=== PATIENT | female | born 1975 | race Hispanic/Latino ===

== ENCOUNTER 2019-11-23 01:07 | Inpatient (IN) | payer SELFPAY ==
--- OUTSIDE RECORDS SUMMARY | 2019-11-23 01:10 | XMS REPORT ---
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 Active Daysi Proteinuria 11/04 11/04 Artis GARCIA (res) BMI 45.0-49.9 Active Daysi Body Mass Index 11/03 11/03 Artis GARCIA 45.0-49.9, (res) adult MORBID OBESITY Active Daysi Morbid obesity 11/03 11/03 Artis GARCIA (res) Hyperlipidemia 272.4 Active Allison Other and 01/31 02/07 Darya GARCIA unspecified hyperlipidemia Anemia 285.9 Active Allison Anemia, 01/17 01/17 Darya GARCIA unspecified DIABETES 250.00 Active Allison Diabetes MELLITUS, TYPE 01/17 01/17 Darya GARCIA mellitus II without mention of complication, type II or unspecified type, not stated as uncontrolled HYPERTENSION 401.9 Active Allison Unspecified 01/17 01/17 Darya GARCIA essential hypertension Abscess, back s/p ICD-682.2 Inactive Lesli Brooke I&D D.O. Abscess, back 682.2 Resolved Lesli Brooke Cellulitis and s/p I&D D.O. abscess of trunk Medication List Medication Instructions Start Stop Generic NDC Status Provider Patient Date Date Name Instruction ASPIRIN 81 MG 1 by ASPIRIN [id number] Active Daysi Active ORAL TABLET mouth Artis GARCIA DELAYED every (res) RELEASE day HUMULIN N 939 80 8147/11/06 INSULIN NPH 22845822444 Active Daysi Active UNIT/ML units HUMAN Artis GARCIA SUBCUTANEOUS SC BID (ISOPHANE) (res) SUSPENSION METFORMIN HCL 1 by METFORMIN HCL 26806297833 Active Daysi Active 1000 MG ORAL mouth Artis GARCIA TABLET twice a (res) day SIMVASTATIN 40 1 by SIMVASTATIN 88774108843 Active Daysi Active MG ORAL TABLET mouth Artis GARCIA every (res) night LISINOPRIL 10 1 by LISINOPRIL 31741218143 Active Daysi Active MG ORAL TABLET mouth Artis GARCIA every (res) day AMOXICILLIN 1 tablet AMOXICILLIN 854450 AMOXICILLIN Inactive 500 MG ORAL by mouth 500 MG ORAL CAPSULE every 8 CAPSULE hours until gone TYLENOL WITH Take 1 TYLENOL WITH ACETAMINOPHE Inactive CODEINE #3 tab CODEINE #3 N-CODEINE TABLET every TABLET TABS 4-6 hours prn pain LANTUS 60 units LANTUS INSULIN Inactive SOLOSTAR 100 once SOLOSTAR 100 GLARGINE UNIT/ML daily UNIT/ML SUBCUTANEOUS SUBCUTANEOUS SOLUTION SOLUTION PEN-INJECTOR PEN-INJECTOR FERROUS 1 by FERROUS [id number] FERROUS Inactive SULFATE 325 mouth 2 SULFATE 325 SULFATE (65 FE) MG times a (65 FE) MG ORAL TABLET day ORAL TABLET DELAYED DELAYED RELEASE RELEASE NOVOLIN 70/30 30 units NOVOLIN 70/30 INSULIN NPH Inactive RELION (70-30) twice RELION ISOPHANE & 100 UNIT/ML daily (70-30) 100 REGULAR SUBCUTANEOUS UNIT/ML SUSPENSION SUBCUTANEOUS SUSPENSION AMOXICILLIN 1 AMOXICILLIN 11047134482 No Daysi Active 500 MG ORAL tablet Longer Artis GARCIA CAPSULE by Active (res) mouth every 8 hours until gone TYLENOL WITH Take 1 ACETAMINOPHE 13021158401 No Daysi Active CODEINE #3 tab N-CODEINE Anuj Wisdom MD TABLET every TABS Active (res) 4-6 hours prn pain LANTUS 60 INSULIN 56403198938 No Daysi Active SOLOSTAR 100 units GLARGINE Anuj Wisdom MD UNIT/ML once Active (res) SUBCUTANEOUS daily SOLUTION PEN-INJECTOR FERROUS 1 by FERROUS 75780033128 No Daysi Active SULFATE 325 mouth 2 SULFATE Longer Artis GARCIA (65 FE) MG times a Active (res) ORAL TABLET day DELAYED RELEASE NOVOLIN 30 INSULIN NPH 22477625697 No Lesli M Active RELION units ISOPHANE & Longer Ehdaie () 100 twice REGULAR Active D.O. UNIT/ML daily SUBCUTANEOUS SUSPENSION Vital Signs Date Name Value Unit Range Description blood pressure, diastolic 100 mm[Hg] BP diamond blood pressure, systolic 154 mm[Hg] BP sys height E&M 61 [in_us] Bdy height pulse rate E&M 80 /min Heart rate respiratory rate E&M 16 /min Resp rate temperature E&M 98.9 [degF] Body temperature weight E&M 246.60 [lb_av] Weight Measured blood pressure, diastolic 78 mm[Hg] BP diamond blood pressure, systolic 125 mm[Hg] BP sys pulse rate E&M 97 /min Heart rate blood pressure, diastolic 92 mm[Hg] BP diamond blood pressure, systolic 156 mm[Hg] BP sys pulse rate E&M 88 /min Heart rate blood pressure, diastolic 88 mm[Hg] BP diamond blood pressure, systolic 141 mm[Hg] BP sys pulse rate E&M 90 /min Heart rate blood pressure, diastolic 96 mm[Hg] BP diamond blood pressure, systolic 149 mm[Hg] BP sys height E&M 61 [in_us] Bdy height pulse rate E&M 86 /min Heart rate respiratory rate E&M 20 /min Resp rate temperature E&M 98.5 [degF] Body temperature weight E&M 234.40 [lb_av] Weight Measured Diagnostic Results Date Name Value Unit Range Description Lab Report: Comp. Metabolic Panel (14), Lipid Panel, Albumin/Creatinine ... - Chemistry sodium, serum 137 mmol/L 323-940 3681/11/06 very low density lipoproteins 56 mg/dL 5-40 carbon dioxide, venous blood 23 mmol/L 20-29 chloride, serum 98 mmol/L 96-106 triglyceride, serum, fasting 280 mg/dL 0-149 calcium, serum 8.9 mg/dL 8.7-10.2 urea nitrogen, blood 13 mg/dL 6-24 microalbumin/creatinine ratio, urine 1531.7 MG/G CREAT ug/mg 0.0 -30.0 alanine aminotransferase (SGPT), serum 38 U/L 0-32 Office Visit: Adult Followup on diabetes 6 Dr Wisdom - Chemistry blood glucose, fasting 267 mg/dL Lab Report: Comp. Metabolic Panel (14), Lipid Panel, Albumin/Creatinine ... - Chemistry protein, total, serum 7.7 g/dL 6.0-8.5 alkaline phosphatase, serum 123 U/L 39-117 LDL cholesterol, serum 104 mg/dL 0-99 urea nitrogen/creatinine ratio, serum 19 9-23 Office Visit: Adult Followup Dr Brooke Rm 5 - Chemistry hemoglobin A1C, blood, as % of total hemoglobin 11.5 % Lab Report: Comp. Metabolic Panel (14), Lipid Panel, Albumin/Creatinine ... - Chemistry HDL cholesterol, serum 42 mg/dL >39 Lab Report: Comp. Metabolic Panel (14), Lipid Panel, Albumin/Creatinine ... - Genetics/fertility eGFR if 123 mL/min/1.73m2 >59 Lab Report: Comp. Metabolic Panel (14), Lipid Panel, Albumin/Creatinine ... - Chemistry globulin, serum 3.8 1.5-4.5 albumin/globulin ratio, serum 1.0 1.2-2.2 creatinine, serum 0.70 mg/dL 0.57-1.00 Estimated Glomerular Filtration Rate 106 mL/min/1.73m2 >59 (calc) cholesterol, serum 202 mg/dL 199-746 3425/11/06 creatinine, random, urine 77.3 mg/dL Not Estab. bilirubin, serum, total 0.4 mg/dL 0.0-1.2 Lab Report: Comp. Metabolic Panel (14), Lipid Panel, Albumin/Creatinine ... - Urinalysis microalbumin/total urine volume 1184.0 mg/L Not Estab. Lab Report: Comp. Metabolic Panel (14), Lipid Panel, Albumin/Creatinine ... - Chemistry blood glucose, random 293 mg/dL 65-99 aspartate aminotransferase (SGOT), serum 30 U/L 0-40 potassium, serum 4.5 mmol/L 3.5-5.2 albumin, serum 3.9 g/dL 3.5-5.5 Encounters Date Encounter Provider Code Facility Est Patient Exp Daysi Wisdom MD CPT-16578 [facility] 11:31:09 ENERGY CONSERVATION ENGINEER Problem - 38187 (res) Practice Est Patient Detailed Daysi Wisdom MD CPT-61119 [facility] 09:09:18 ENERGY CONSERVATION ENGINEER - 36501 (res) Practice Est Patient Detailed Lesli Brooke D.O. CPT-92240 [facility] 13:49:09 ENERGY CONSERVATION ENGINEER - 69079 Practice Est Patient Exp Allison Lackey MD CPT-93974 [facility] 14:09:01 CDT Problem - 74778 Practice New Patient Exp Allison Lackey MD CPT-02776 [facility] 16:06:23 CDT Problem - 64884 Practice Procedures Code Procedure Name Date Entry Date Standard Description CPT-00442 HEMOGLOBIN A1C - In House 09:09:19 ENERGY CONSERVATION ENGINEER CPT-05711 Glucose Stick 09:09:18 ENERGY CONSERVATION ENGINEER CPT-05530 HEMOGLOBIN A1C - In House 13:49:08 ENERGY CONSERVATION ENGINEER
[2019-11-23] MEDS ORDERED: NA CHLORIDE 0.9% 2,000 ML ONE (02:02)
[2019-11-23] MEDS ORDERED: PIPER/TAZO/NS 3.375gm 3.375 GM/100 ML BAG ONE (02:02)
[2019-11-23 02:20] LABS: Absolute Lymphocytes (CBC) 4.3 K/uL (0.7-4.9); Basophils % 1.2 % (0-1.3); Hematocrit 44.6 % (36.0-45.0); Lymphocytes % 34.5 % (15.3-44.8); MPV 7.3 fL (7.6-11.3); RBC Red Blood Cell Count 5.13 M/uL (3.86-4.86)
[2019-11-23] MEDS ORDERED: INSULIN -REGULAR HUMAN 50 UNIT/0.5 ML ML ONE (02:28)
[2019-11-23] MEDS ORDERED: VANCOMYCIN 1 GM/VIAL ONE (02:29)
[2019-11-23] MEDS ORDERED: NA CHLORIDE 0.9% 250 ML ONE (02:29)
[2019-11-23 02:31] LABS: Potassium 3.8 mmol/L (3.5-5.1)
[2019-11-23 03:10] LABS: Albumin 3.3 g/dL (3.4-5.0); Bilirubin Direct 0.1 mg/dL (0-0.2); Bilirubin Total 0.4 mg/dL (0.2-1.0); Protein, Total 7.5 g/dL (6.4-8.2)
--- NOTE | 2019-11-23 03:29 | EDPHYS ---
Physician Documentation [facility] Name: Hollie Fabian Age: 44 yrs Sex: Female : 1975 Arrival Date: 11/23/2019 Time: 01:09 Bed 7 Private MD: ED Physician Armen Bro HPI: 11/23 02:08 This 44 yrs old Female presents to ER via Ambulatory with complaints of snw Abscess. 02:08 The patient presents with an abscess of the right lower quadrant, The patient presents snw with cellulitis of the surrounding abscess. Description: well demarcated, draining. Onset: The symptoms/episode began/occurred gradually, 2 week(s) ago, and became persistent. Possible cause(s): unknown. Associated signs and symptoms: Pertinent positives: discharge, erythema, bruised. Severity of symptoms: At their worst the symptoms were moderate, severe. The patient has not experienced similar symptoms in the past. The patient has not recently seen a physician, and does not have an established primary care provider. 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 - Coronavirus screen:: The patient has NOT traveled to [place], [place], or [place] in the past 14 days. - Social history:: Smoking status: Patient denies any tobacco usage or history of. Patient uses alcohol, occasionally. Patient/guardian denies using street drugs. - Ebola Screening: : Patient negative for fever greater than or equal to 101.5 degrees Fahrenheit, and additional compatible Ebola Virus Disease symptoms Patient denies exposure to infectious person Patient denies travel to an Ebola-affected area in the 21 days before illness onset. ROS: 02:06 Constitutional: Negative for fever, chills, and weight loss, Eyes: Negative for injury, snw pain, redness, and discharge, ENT: Negative for injury, pain, and discharge, Neck: Negative for injury, pain, and swelling, Cardiovascular: Negative for chest pain, palpitations, and edema, Respiratory: Negative for shortness of breath, cough, wheezing, and pleuritic chest pain, Back: Negative for injury and pain, : Negative for injury, bleeding, discharge, and swelling, MS/Extremity: Negative for injury and deformity, Skin: Negative for injury, rash, and discoloration, Neuro: Negative for headache, weakness, numbness, tingling, and seizure, Psych: Negative for depression, anxiety, suicide ideation, homicidal ideation, and hallucinations. 02:06 Constitutional: Negative for chills, fever, malaise. 02:06 Abdomen/GI: Positive for painful abscess to lower right abdomen. Exam: 02:04 Constitutional: This is a well developed, well nourished patient who is awake, alert, snw and in no acute distress. Head/Face: Normocephalic, atraumatic. Eyes: Pupils equal round and reactive to light, extra-ocular motions intact. Lids and lashes normal. Conjunctiva and sclera are non-icteric and not injected. Cornea within normal limits. Periorbital areas with no swelling, redness, or edema. ENT: Nares patent. No nasal discharge, no septal abnormalities noted. Tympanic membranes are normal and external auditory canals are clear. Oropharynx with no redness, swelling, or masses, exudates, or evidence of obstruction, uvula midline. Mucous membranes moist. Neck: Trachea midline, no thyromegaly or masses palpated, and no cervical lymphadenopathy. Supple, full range of motion without nuchal rigidity, or vertebral point tenderness. No Meningismus. Chest/axilla: Normal chest wall appearance and motion. Nontender with no deformity. No lesions are appreciated. Cardiovascular: Regular rate and rhythm with a normal S1 and S2. No gallops, murmurs, or rubs. Normal PMI, no JVD. No pulse deficits. Respiratory: Lungs have equal breath sounds bilaterally, clear to auscultation and percussion. No rales, rhonchi or wheezes noted. No increased work of breathing, no retractions or nasal flaring. Abdomen/GI: Soft, non-tender, with normal bowel sounds. No distension or tympany. No guarding or rebound. No evidence of tenderness throughout. Back: No spinal tenderness. No costovertebral tenderness. Full range of motion. MS/ Extremity: Pulses equal, no cyanosis. Neurovascular intact. Full, normal range of motion. Neuro: Awake and alert, GCS 15, oriented to person, place, time, and situation. Cranial nerves II-XII grossly intact. Motor strength 5/5 in all extremities. Sensory grossly intact. Cerebellar exam normal. Normal gait. Psych: Awake, alert, with orientation to person, place and time. Behavior, mood, and affect are within normal limits. 02:04 Skin: Appearance: normal except for affected area, abscess, that is moderate sized, with surrounding cellulitis, that is mild, that is moderate, with necrotic coloration of skin flap over large cavity, malodorous, cellulitis, that is mild, well demarcated, on the mid and right lower panus, right groin with beefy red rash c/w fungal infection. Vital Signs: 01:20 BP 165 / 89; Pulse 96; Resp 20; Temp 97.9(O); Pulse Ox 98% on R/A; Weight 104.33 kg fc (R); Height 5 ft. 2 in. (157.48 cm) (R); Pain 8/10; 02:00 BP 128 / 82; Pulse 95; Resp 17; Pulse Ox 96% on R/A; rv 03:00 BP 116 / 72; Pulse 100; Resp 18; Pulse Ox 97% on R/A; rv 04:27 BP 110 / 63; Pulse 86; Resp 17; Pulse Ox 97% on R/A; rv 05:33 BP 130 / 67; Pulse 86; Resp 16; Pulse Ox 98% on R/A; rv 01:20 Body Mass Index 42.07 (104.33 kg, 157.48 cm) fc MDM: 01:33 Patient medically screened. snw 03:24 Data reviewed: vital signs, nurses notes. Data interpreted: Pulse oximetry: on room air snw is 98 %. Interpretation: normal. Counseling: I had a detailed discussion with the patient and/or guardian regarding: the historical points, exam findings, and any diagnostic results supporting the discharge/admit diagnosis, the presence of at least one elevated blood pressure reading (>120/80) during this emergency department visit, lab results, radiology results, the need for further work-up and treatment in the hospital. Physician consultation: Magali Goetz MD was called at 03:25, was contacted at 03:25, regarding admission, to the medical/surgical unit. and will see patient shortly. 11/23 01:47 Order name: Procalcitonin; Complete Time: 17:38 [facility] 11/23 01:47 Order name: Urine Microscopic Only; Complete Time: 17:38 11/23 01:47 Order name: Test, Serum; Complete Time: 17:38 11/23 01:47 Order name: Urine Culture [facility] 11/23 02:08 Order name: Basic Metabolic Panel; Complete Time: 03:14 EDNM 11/23 02:08 Order name: Creatine Phosphokinase; Complete Time: 03:14 EDNM 11/23 01:59 Order name: CT Stone Protocol [facility] 11/23 02:08 Order name: Lactate; Complete Time: 02:34 EDNM 11/23 02:08 Order name: CBC with Automated Diff; Complete Time: 03:21 EDMS 11/23 02:08 Order name: Sedimentation Rate, Westergren; Complete Time: 03:21 EDNM 11/23 02:08 Order name: Blood Culture [facility] 11/23 02:08 Order name: Blood Culture [facility] 11/23 02:09 Order name: Type and Screen; Complete Time: 03:29 EDMS 11/23 02:09 Order name: Glucose, Ancillary Testing; Complete Time: 02:11 EDNM 11/23 02:18 Order name: Chest Single View; Complete Time: 17:38 ED11/23 02:34 Order name: Liver (Hepatic) Function; Complete Time: 03:14 EDNM 11/23 03:42 Order name: Urine Dipstick--Ancillary (enter results); Complete Time: 17:38 [facility] 11/23 03:42 Order name: Urine --Ancillary (enter results); Complete Time: 17:38 de11/23 03:51 Order name: Glucose, Ancillary Testing; Complete Time: 17:38 EDNM 11/23 01:47 Order name: Accucheck; Complete Time: 02:13 w 11/23 01:47 Order name: Cardiac monitoring; Complete Time: 02:13 [facility] 11/23 01:47 Order name: EKG - Nurse/Tech; Complete Time: 03:25 w 11/23 01:47 Order name: IV Saline Lock - Large Bore; Complete Time: 02:12 11/23 01:47 Order name: Labs collected and sent; Complete Time: 02:11 11/23 01:47 Order name: O2 Per Protocol; Complete Time: 02:12 11/23 01:47 Order name: O2 Sat Monitoring; Complete Time: 02:12 11/23 01:47 Order name: Urine Dipstick-Ancillary (obtain specimen); Complete Time: 03:25 snw 11/23 03:29 Order name: FSBS; Complete Time: 03:46 snw Administered Medications: 02:13 Drug: NS 0.9% (30 ml/kg) 30 ml/kg Route: IV; Rate: bolus; Site: right antecubital; rv 05:33 Follow up: IV Status: Completed infusion; IV Intake: 2000ml rv 02:16 Drug: Zosyn 3.375 grams Route: IVPB; Infused Over: 60 mins; Site: right antecubital; vc 03:56 Follow up: IV Status: Completed infusion rv 02:30 Drug: Insulin Regular Human 5 units {Co-Signature: vc (Vira Delgado RN).} Route: rv IVP; Site: right antecubital; 03:55 Follow up: Response: Blood sugar is lowered rv 03:47 Drug: vancoMYCIN 1 grams Route: IVPB; Infused Over: 2 hrs; Site: right antecubital; vc 05:32 Follow up: IV Status: Completed infusion rv Disposition: 06:17 Co-signature as Attending Physician, Armen Bro MD. rn Disposition: 11/23/19 03:28 Hospitalization ordered by Magali Goetz for Observation. Preliminary diagnosis are Abscess of panus, Cellulitis, unspecified, Diabetes mellitus due to underlying condition with hyperglycemia, Tinea corporis. - Bed requested for Telemetry/MedSurg (observation). - Status is Observation. vc - Condition is Stable. - Problem is new. - Symptoms are unchanged. UTI on Admission? No Signatures: Dispatcher [employer] EDMS Yumiko Conn FNP-C MANUFACTURER REPRESENTATIVE-Csnw Carli Robles RN RN fc Nieto, Roman, MD MD rn Garcia, Cindy, RN RN cg Vicente, Ronaldo, RN RN rv Calcote, Vanessa, RN RN vc Vanessa Calcote RN vc Corrections: (The following items were deleted from the chart) 02:11 02:04 Skin: Appearance: normal except for affected area, abscess, that is moderate snw sized, with surrounding cellulitis, that is mild, that is moderate, with necrotic coloration of skin flap over large cavity, malodorous, cellulitis, that is mild, well demarcated, on the mid and right lower panus, snw 02:22 02:22 Procalcitonin+C.LAB.BRZ ordered. EDMS EDMS 02:23 02:22 UA MICROSCOPIC+U.LAB.BRZ ordered. EDMS EDMS 02:23 02:22 TEST, SERUM+SC.LAB.BRZ ordered. EDMS EDMS 02:23 02:22 Urine Culture+BA.LAB.BRZ ordered. EDNM EDMS 02:23 02:23 Stone Protocol+CT.RAD.BRZ ordered. EDNM EDMS 02:28 02:21 WESTERGREN SEDRATE+H.LAB.BRZ ordered. EDNM EDMS 02:28 02:21 CBC+H.LAB.BRZ ordered. EDNM EDMS 02:29 02:21 TYPE AND SCREEN+BB.LAB.BRZ ordered. EDNM EDMS 02:29 02:21 BLOOD CULTURE*+BA.LAB.BRZ ordered. EDNM EDMS 02:33 02:21 BASIC METABOLIC PANEL+C.LAB.BRZ ordered. EDNM EDMS 02:33 02:21 CREATINE PHOSPHOKINASE+C.LAB.BRZ ordered. EDNM EDMS 02:33 02:21 HEPATIC FUNCTION+C.LAB.BRZ ordered. EDNM EDMS 02:34 02:21 LACTATE+C.LAB.BRZ ordered. EDNM EDMS 02:52 02:22 Chest Single View+RAD.RAD.BRZ ordered. EDNM EDMS 03:29 03:28 Hospitalization Ordered by Magali Goetz MD for Observation. Preliminary diagnosis snw is Abscess of panus; Cellulitis, unspecified; Diabetes mellitus due to underlying condition with hyperglycemia. Bed requested for Telemetry/MedSurg (observation). Status is Observation. Condition is Stable. Problem is new. Symptoms are unchanged. UTI on Admission? No. snw 04:50 03:29 11/23/2019 03:28 Hospitalization Ordered by Magali Goetz MD for Observation. cg Preliminary diagnosis is Abscess of panus; Cellulitis, unspecified; Diabetes mellitus due to underlying condition with hyperglycemia; Tinea corporis. Bed requested for Telemetry/MedSurg (observation). Status is Observation. Condition is Stable. Problem is new. Symptoms are unchanged. UTI on Admission? No. snw 05:43 04:50 11/23/2019 03:28 Hospitalization Ordered by Magali Goetz MD for Observation. vc Preliminary diagnosis is Abscess of panus; Cellulitis, unspecified; Diabetes mellitus due to underlying condition with hyperglycemia; Tinea corporis. Bed requested for Telemetry/MedSurg (observation). Status is Observation. Condition is Stable. Problem is new. Symptoms are unchanged. UTI on Admission? No. cg
--- NOTE | 2019-11-23 03:29 | ER ---
Nurse's Notes [facility] Name: Hollie Fabian Age: 44 yrs Sex: Female : 1975 Arrival Date: 11/23/2019 Time: 01:09 Bed 7 Private MD: Diagnosis: Abscess of panus;Cellulitis, unspecified;Diabetes mellitus due to underlying condition with hyperglycemia;Tinea corporis Presentation: 11/23 01:20 Presenting complaint: Patient states: that over 1 week ago she noticed an abscess to right lower abd. Went to have it looked at over at [place] but they could not help her there. Transition of care: patient was not received from another setting of care. Onset of symptoms was November 15, 2019. Risk Assessment: Do you want to hurt yourself or someone else? Patient reports no desire to harm self or others. Initial Sepsis Screen: Does the patient meet any 2 criteria? HR > 90 bpm. No. Patient's initial sepsis screen is negative. Does the patient have a suspected source of infection? No. Patient's initial sepsis screen is negative. Care prior to arrival: None. 01:20 Method Of Arrival: Ambulatory 01:20 Acuity: JEFF 3 Triage Assessment: 02:12 General: Behavior is calm, cooperative. 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 - Coronavirus screen:: The patient has NOT traveled to [place], [place], or [place] in the past 14 days. - Social history:: Smoking status: Patient denies any tobacco usage or history of. Patient uses alcohol, occasionally. Patient/guardian denies using street drugs. - Ebola Screening: : Patient negative for fever greater than or equal to 101.5 degrees Fahrenheit, and additional compatible Ebola Virus Disease symptoms Patient denies exposure to infectious person Patient denies travel to an Ebola-affected area in the 21 days before illness onset. Screenin:11 Abuse screen: Denies threats or abuse. Denies injuries from another. Nutritional rv screening: No deficits noted. Tuberculosis screening: No symptoms or risk factors identified. Fall Risk None identified. Assessment: 02:10 General: Appears in no apparent distress. Pain: Complains of pain in abdomen. Neuro: rv Level of Consciousness is awake, alert, obeys commands, Oriented to person, place, time, situation. Cardiovascular: Patient's skin is warm and dry. Respiratory: Airway is patent. Derm: Abscess located on abdomen. 03:00 Reassessment: Patient and/or family updated on plan of care and expected duration. Pain vc level reassessed. patients at bedside. 04:00 Reassessment: Patient and/or family updated on plan of care and expected duration. Pain vc level reassessed. Provider at bedside. Patient denies pain at this time. 05:00 Reassessment: Patient and/or family updated on plan of care and expected duration. Pain vc level reassessed. Patient is alert, oriented x 3, equal unlabored respirations, skin warm/dry/pink. Patient denies pain at this time. Vital Signs: 01:20 BP 165 / 89; Pulse 96; Resp 20; Temp 97.9(O); Pulse Ox 98% on R/A; Weight 104.33 kg (R); Height 5 ft. 2 in. (157.48 cm) (R); Pain 8/10; 02:00 BP 128 / 82; Pulse 95; Resp 17; Pulse Ox 96% on R/A; rv 03:00 BP 116 / 72; Pulse 100; Resp 18; Pulse Ox 97% on R/A; rv 04:27 BP 110 / 63; Pulse 86; Resp 17; Pulse Ox 97% on R/A; rv 05:33 BP 130 / 67; Pulse 86; Resp 16; Pulse Ox 98% on R/A; rv 01:20 Body Mass Index 42.07 (104.33 kg, 157.48 cm) ED Course: 01:09 Patient arrived in ED. jg7 01:20 Arm band placed on Patient placed in an exam room, on a stretcher. fc 01:33 [facility] Conn [facility]C [facility] snw 01:33 Armen Bro MD is Attending Physician. snw 01:35 Triage completed. fc 01:45 Clinton Guerra, MARIA EUGENIA is Primary Nurse. rv 01:55 Inserted saline lock: 22 gauge in right antecubital area, using aseptic technique. rv Blood collected. 01:55 First set of blood cultures drawn by me. rv 02:11 Patient has correct armband on for positive identification. Placed in gown. Bed in low rv position. Call light in reach. ekg monitor tech on. Pulse ox on. NIBP on. 02:30 Chest Single View In Process Unspecified. EDMS 02:34 Radiology exam delayed due to test not completed at this time. kw1 03:26 Magali Goetz MD is Hospitalizing Provider. snw 03:38 CT Stone Protocol In Process Unspecified. EDMS 05:33 No provider procedures requiring assistance completed. Patient admitted, IV remains in rv place. Administered Medications: 02:13 Drug: NS 0.9% (30 ml/kg) 30 ml/kg Route: IV; Rate: bolus; Site: right antecubital; rv 05:33 Follow up: IV Status: Completed infusion; IV Intake: 2000ml rv 02:16 Drug: Zosyn 3.375 grams Route: IVPB; Infused Over: 60 mins; Site: right antecubital; vc 03:56 Follow up: IV Status: Completed infusion rv 02:30 Drug: Insulin Regular Human 5 units {Co-Signature: vc (Vira Delgado RN).} Route: rv IVP; Site: right antecubital; 03:55 Follow up: Response: Blood sugar is lowered rv 03:47 Drug: vancoMYCIN 1 grams Route: IVPB; Infused Over: 2 hrs; Site: right antecubital; vc 05:32 Follow up: IV Status: Completed infusion rv Intake: 05:33 IV: 2000ml; Total: 2000ml. rv Outcome: 03:28 Decision to Hospitalize by Provider. snw 05:34 Admitted to Med/surg accompanied by nurse, via wheelchair, room 231, with chart, Report rv called to TOREY DEL CID 05:34 Condition: good 05:34 Discharge instructions given to patient, family, Instructed on the need for admit, Demonstrated understanding of instructions. 05:43 Patient left the ED. vc Signatures: Dispatcher [employer] EDIA Yumiko Conn, MASK INSPECTOR-C MASK INSPECTOR-Csnw Carli Robles RN RN fc Melissa Shaw kw1 Clinton Guerra RN RN rv RasmussenElizabethStephanie jg7 Vira Delgado RN RN vc Vanessa Calcote RN vc Corrections: (The following items were deleted from the chart) 04:27 04:00 BP 110 / 63; Pulse 86bpm; Resp 17bpm; Pulse Ox 97% RA; rv rv
[2019-11-23 03:36] LABS: Urine Culture Reflex Order NOT NEEDED
[2019-11-23 03:37] LABS: Urine Bacteria <20 /HPF (<20)
[2019-11-23 04:27] LABS: Urine Blood TRACE (NEG); Urine Glucose 2+ (NEG); Urine Protein 1+ (NEG); Urine Specific Gravity 1.015 (1.005-1.030); Urine pH 5.5 (5.0-7.0)
[2019-11-23] MEDS: NA CHLORIDE 0.9% 1,000 ML IV SCH ×3 (05:00→23:04)
--- NOTE | 2019-11-23 05:30 | P.HP ---
Certification for Inpatient Patient admitted to: Inpatient With expected LOS: >2 Midnights Patient will require the following post-hospital care: Home Health Services Practitioner: I am a practitioner with admitting privileges, knowledge of patient current condition, hospital course, and medical plan of care. Services: Services provided to patient in accordance with Admission requirements found in Title 42 Section 412.3 of the Code of Federal Regulations Patient History Date of Service: 11/23/19 Reason for admission: abscess on the stomach History of Present Illness: taj coyle is a 44yoF w/ pmhx of morbid obesity, HTN, DM - uncontrolled and noncompliant who presents to the ED w/ stomach abscess. she reports noting a pimple size bump 2 weeks ago. she then burst the pimple/bump and noted pus expressed from the lesion. she states that she started to use gauze and tripe antibiotic to cover the lesion. she reports blackening of the lesion after a couple days, then noted warmth and erythema spreading around the lesion several days after that. she reports that she continued her home care for the lesion. she presents today due to the fact that when she removed her gauze it appeared the entire top layer was removed w/ the gauze resulting in extensive bleeding and was concerning for her. she was evaluated in the ED and started on IV abx. she also was noted to have a fungal infection of the right inguinal extending from the lesion. she denies fever, chills, cp, sob, cruz, dizziness, CRUZ, swelling, abdominal bloating, back pain. she denies tobacco, etoh, drugs. she had a similar episode on the left shoulder on her back. she reports that she drinks a lot of water 2/2 thirst and urinates frequently w/o dysuria or hematuria. . she states that she is supposed to be on insulin but doesn't use it unless she feels bad, she also does not check her BGL at home. Home medications list reviewed: Yes - Past Medical/Surgical History Diabetic: Yes - Social History Smoking Status: Never smoker Smoking therapy provided: No Alcohol use: No CD- Drugs: No Review of Systems General: Unremarkable Eyes: Unremarkable ENT: Unremarkable Respiratory: Unremarkable Cardiovascular: Unremarkable Gastrointestinal: Other, As per HPI, Unremarkable Genitourinary: Frequency, Unremarkable Musculoskeletal: Unremarkable Integumentary: Rash, Lesions, Other (right sided pannus w/ 6.5 cm blackened lesion w/ surrounding erythema and induration and extensive redness (fungal) down the right inguinal area. TTP on evaluation), As per HPI Neurological: Unremarkable Lymphatics: Unremarkable Physical Examination - Physical Exam General: Alert, In no apparent distress, Oriented x3, Cooperative, Obese HEENT: Atraumatic, Mucous membr. moist/pink Neck: Supple Respiratory: Clear to auscultation bilaterally, Normal air movement Cardiovascular: No edema, Normal pulses, Regular rate/rhythm, No murmurs Capillary refill: <2 Seconds Gastrointestinal: Soft and benign, Non-distended, No guarding (lesion on the skin of the abdomen ), Other (lesion under the pannus ) Musculoskeletal: No clubbing, No swelling, No warmth Integumentary: Skin breakdown, Skin lesion, Tenderness/swelling, Erythema, Warmth Neurological: Normal speech, Other (gait not test ) External genitalia: Deferred Rectal: Deferred - Studies Laboratory Data (last 24 hrs) 11/23/19 01:55: Sodium 135 L, Potassium 3.8, BUN 13, Creatinine 0.89, Glucose 362 H, Total Bilirubin 0.4, AST 22, ALT 34, Alkaline Phosphatase 153 H 11/23/19 01:55: WBC 12.3 H, Hgb 15.2 H, Hct 44.6, Plt Count 382 11/23/19 01:47: Sodium Cancelled, Potassium Cancelled, BUN Cancelled, Creatinine Cancelled, Glucose Cancelled, Total Bilirubin Cancelled, AST Cancelled, ALT Cancelled, Alkaline Phosphatase Cancelled 11/23/19 01:47: WBC Cancelled, Hgb Cancelled, Hct Cancelled, Plt Count Cancelled Assessment and Plan - Plan 44yoF admitted w/ abscess inside the pannus - similar episode in past c/w IV abx and IVF obtain a1c, tsh, lipid panel tele - which can be removed gen surg consulted for surgical intervention analgesics ordered and anti-emetics N/V DM - uncontrolled, start on SSI and will monitor BGL will need DM education morbid obesity encouraged to make lifestyle and diet changes. DVT - scd Discharge Plan: Home - Advance Directives Does patient have a Living Will: No Does patient have a Durable POA for Healthcare: No - Code Status/Comfort Care Code Status: Full Code
[2019-11-23 06:01] VITALS: BMI 43.0
[2019-11-23 06:52] LABS: Thyroid Stimulating Hormone 4.44 uIU/mL (0.360-3.740)
[2019-11-23] MEDS ORDERED: INSULIN -REGULAR HUMAN 50 UNIT/0.5 ML ML SQ SCH (07:30)
--- NOTE | 2019-11-23 08:41 | RAD REPORT ---
EXAM DESCRIPTION: Wally Single View11/23/2019 2:30 am CLINICAL HISTORY: Abdominal pain COMPARISON: none FINDINGS: The lungs appear clear of acute infiltrate. The heart is normal size IMPRESSION: No acute abnormalities displayed
[2019-11-23] MEDS: MORPHINE 2 MG/ML SYR IV PRN ×3 (09:43→19:27)
[2019-11-23] MEDS: PIPER/TAZO/NS 3.375gm 3.375 GM/100 ML BAG IVPB SCH ×2 (09:44→17:57)
[2019-11-23] MEDS ORDERED: LIDOCAINE 2% MPF 5 ML VIAL ONE (10:56)
[2019-11-23] MEDS ORDERED: propofoL 200 MG/20 ML VIAL IV ONE (10:56)
[2019-11-23] MEDS ORDERED: FENTANYL CITR 100 MCG/2 ML ONE (10:56)
[2019-11-23] MEDS ORDERED: COLLAGENASE 30 GM OINTMENT TOP ONE (11:11)
--- NOTE | 2019-11-23 11:12 | P.OP ---
Preoperative diagnosis: Infected wound RLQ Abdomen Postoperative diagnosis: same Primary procedure: Excisional debridement RLQ abdominal Wound to SQ 6x4 cm Anesthesia: General Estimated blood loss: min Specimen: infected tissue Findings: as above Complications: None Transferred to: Recovery Room Condition: Good
[2019-11-23] MEDS ORDERED: KETOROLAC 30 MG/ML INJ ONE (11:16)
[2019-11-23] MEDS ORDERED: ONDANSETRON 4 MG/2 ML VIAL ONE (11:16)
--- NOTE | 2019-11-23 11:58 | EKG ---
Test Date: 2019-11-23 Test Time: 02:23:27 Ribbon Inker: [place] MEASUREMENT RESULTS: Intervals: Rate: 96 SD: 152 QRSD: 82 QT: 352 QTc: 444 [place]: P: 50 SD: 152 QRS: 76 T: 71 INTERPRETIVE STATEMENTS: Normal sinus rhythm Cannot rule out Anterior infarct, age undetermined Abnormal ECG No previous ECG available for comparison Electronically Signed On 11-23-19 11:58:10 EDGE FINISHER by Huang Lorenzana
--- NOTE | 2019-11-23 12:29 | PREOPCON ---
Date of Consultation: 11/23/2019 Reason For Consultation: Infected wound, right lower quadrant. History Of Present Illness: Patient is a 44-year-old female with morbid obesity, who comes in with s everal week history of a small infected wound that does become larger over time. She went to the ER, she was admitted and I was consulted for infected wound that possibly needs debridement. She denies any current fever or chills. She reported some blackening of the lesion after couple of days and no anna some warmth and erythema. No sore throat, runny nose, cough, headaches, or dizziness. No chest pain. Review of Systems: Otherwise unremarkable. Past Medical History: Significant for diabetes, hypertension, obesity. Past Surgical History: Shoulder surgery and back abscess. Allergies: SULFA. Social History: She does not smoke. Uses alcohol occasionally. Family History: Noncontributory. Physical Examination: Vital Signs: Stable. She is afebrile. She is awake, alert, and oriented x3. Head and Neck: Cranial nerves 2 through 12 grossly within normal limits. No neck masses. No JVD. Throat clear. Neck supple. Chest: Clear. Heart: S1 and S2. Abdomen: Soft, nondistended. Positive bowel sounds. The right lower quadrant, there is approximate ly an area of 8 x 6 cm necrotic eschar with some granulation tissue underneath it. There was some pu s underneath it. There is surrounding erythema, slight warmth. Extremity: Adequately perfused. Nontender. Neuro: Nonfocal. Laboratory Data: White count is 12.3. Chemistry reviewed. Glucose is elevated 256. Assessment: A 44-year-old female, with infected abdominal wound, right lower quadrant. Please note, the CT was reviewed. There is no deep abscess seen. Recommendations: IV antibiotics as ordered, to the OR for debridement of the infected wound. Patien t understands the risks, benefits, and alternatives and agrees to procedure. /MODL Voice ID: [id number] Report ID: [id number]
[2019-11-23] MEDS: INSULIN -REGULAR HUMAN 50 UNIT/0.5 ML ML SQ SCH ×3 (13:46→20:38)
--- NOTE | 2019-11-23 13:53 | PN ---
Date of Progress Note: 11/23/2019 Subjective: Patient seen and examined. Chart reviewed and case discussed with RN and Dr. Reynolds. Dave leon reports some pain on her abdominal wound site. Medications: List reviewed. Physical Examination: Vital Signs: Temperature 97.5, heart rate 80, blood pressure 107/58 respirations 20 O2 93% on room a ir. General: Awake, alert, oriented x3, in some mild distress, morbidly obese female, ill-appearing. CV: S1, S2. Regular rate and rhythm. Peripheral pulses present. Respiratory: Moving air well bilaterally. No wheezing or stridor. No use of accessory muscles. Gastrointestinal: Abdomen is soft. Tenderness to palpation around the wound. Positive bowel sounds . No guarding or rigidity. Extremities: No clubbing, cyanosis, or edema. Neuro: Cranial nerves 2 through 12 intact grossly. No focal neurological deficit. Skin: The patient has a lateral abdominal wall wound with necrotic tissue and ulceration with draina ge, surrounding erythema. Laboratory Data: TSH 4.44. Procalcitonin less than 0.05. Serum test is negative. Blood glucose levels ranging between 372 and 266. Lactate is 1.6. WBC 12.3, H and H 15.2 and 44.6, platel ets 382. UA is positive. Cultures are pending. Imaging Studies: Chest x-ray shows no acute abnormalities. CT scan of the abdomen does not show any intraabdominal abscess. Does show skin thickening in the right lower quadrant of the abdomen. Smal l defect in skin in the inferior right lower quadrant. Liver has diffuse fatty infiltration. Assessment: A 44-year-old female with: 1.Abdominal wall wound with abscess and necrotic tissue. Dr. Reynolds has been consulted. I spoke wit h him. Patient will be kept n.p.o. We will go into the OR for debridement. Continue with broad-spe ctrum IV antibiotics. We will obtain wound culture. 2.Diabetes mellitus type 2, non-insulin requiring hyperglycemia uncontrolled. We will check A1c and adjust blood glucose levels as needed. 3.Morbid obesity. BMI of 43. 4.Essential hypertension. We will resume home medications. Currently somewhat hypotensive. 5.Acute cystitis with hematuria. We will follow up on urine cultures. Continue antibiotics. Plan: Surgery today. Likely discharge in the next 24-48 hours depending on clinical response. DVT prophylaxis with Lovenox 24 hours post surgery. SA/BERTHAL Voice ID: [id number] Report ID: [id number]
[2019-11-23] MEDS: VANCOMYCIN 2 GM in NA CHLORIDE 0.9% 500 ML IVPB SCH (15:52)
[2019-11-23] MEDS: HYDROCODONE/APAP 5/325 MG TAB PO PRN ×2 (16:57→23:03)
[2019-11-23] MEDS ORDERED: VANCOMYCIN 1 GM in NA CHLORIDE 0.9% 500 ML IVPB SCH (17:00)
--- NOTE | 2019-11-23 22:44 | OP ---
Date of Procedure: 11/23/2019 Surgeon: Naveed Reynolds MD Preoperative Diagnosis: Infected wound, right lower quadrant abdominal wall. Postoperative Diagnosis: Infected wound, right lower quadrant abdominal wall. Procedure: Excisional debridement, infected wound right lower quadrant abdominal wall, 6 x 4 cm to s ubcutaneous tissue. Estimated Blood Loss: Minimal. Specimen: Infected. Tissue Findings: As above. Anesthesia: General. Complications: None. Disposition: Patient tolerated the procedure in a stable condition, taken to the Recovery in good ge neral condition. Description Of Procedure: The patient was brought to the OR and placed in supine position. General anesthesia was begun. Patient was prepped and draped in usual sterile fashion. Marcaine 0.5% infilt rated locally. A 15 blade was used to cut off the necrotic eschar, approximately 6 x 4 cm. There wa s fibrin present in the subcutaneous tissues which was cleaned with a curette. Thigh wound irrigated . Bleeding controlled with cautery and then collagenase dressing was applied. Patient tolerated the procedure in a stable condition, taken to the Recovery i n good general condition. /MODL Voice ID: [id number] Report ID: [id number]
[2019-11-24] MEDS: PIPER/TAZO/NS 3.375gm 3.375 GM/100 ML BAG IVPB SCH ×3 (00:08→17:00)
[2019-11-24] MEDS: VANCOMYCIN 2 GM in NA CHLORIDE 0.9% 500 ML IVPB SCH ×2 (02:26→14:05)
[2019-11-24] MEDS: MORPHINE 2 MG/ML SYR IV PRN ×2 (03:53→12:39)
[2019-11-24 06:12] LABS: Absolute Lymphocytes (CBC) 4.2 K/uL (0.7-4.9); Basophils % 0.5 % (0-1.3); Hematocrit 41.5 % (36.0-45.0); MPV 7.1 fL (7.6-11.3); RBC Red Blood Cell Count 4.75 M/uL (3.86-4.86)
[2019-11-24 06:33] LABS: ALT/SGPT 30 U/L (12-78); AST/SGOT 22 U/L (15-37); Albumin 2.7 g/dL (3.4-5.0); Alkaline Phosphatase 88 U/L (45-117); BUN Blood Urea Nitrogen 13 mg/dL (7-18); Bicarbonate 24 mmol/L (21-32); Bilirubin Total 0.5 mg/dL (0.2-1.0); Glucose Level 182 mg/dL (74-106); Potassium 3.9 mmol/L (3.5-5.1); Protein, Total 6.5 g/dL (6.4-8.2); Sodium Level 142 mmol/L (136-145)
[2019-11-24] MEDS: HYDROCODONE/APAP 5/325 MG TAB PO PRN ×2 (08:07→21:25)
[2019-11-24] MEDS: INSULIN -REGULAR HUMAN 50 UNIT/0.5 ML ML SQ SCH ×4 (08:08→21:23)
[2019-11-24] MEDS: ENOXAPARIN 40 MG/0.4 ML SQ SCH (08:08)
[2019-11-24] MEDS: TRAMADOL HCL 50 MG TAB PO PRN ×2 (09:04→16:58)
[2019-11-24] MEDS: ONDANSETRON 4 MG/2 ML VIAL IV PRN ×2 (09:04→17:43)
[2019-11-24] MEDS: NA CHLORIDE 0.9% 1,000 ML IV SCH ×3 (11:00→23:37)
--- NOTE | 2019-11-24 11:27 | RAD REPORT ---
EXAM DESCRIPTION: CT - Stone Protocol - 11/23/2019 5:26 am CLINICAL HISTORY: Abscess eval COMPARISON: None. TECHNIQUE: CT ABDOMEN PELVIS WITHOUT IV CONTRAST on 11/23/2019 1:59 AM AIRWORTHINESS SAFETY INSPECTOR This exam was performed according to our departmental dose-optimization program, which includes autom ated exposure control, adjustment of the mA and/or kV according to patient size and/or use of iterati ve reconstruction technique. FINDINGS: Lower lungs are clear. Abdomen: Liver is diffusely fatty in attenuation. There is no biliary dilatation. Gallbladder is norm al in appearance. The pancreas and spleen are normal in appearance. The adrenal glands and kidneys ar e unremarkable. Abdominal aorta is normal in course and caliber without aneurysm. There is no free air. There is no r etroperitoneal adenopathy. Pelvis: There is no bowel obstruction. Urinary bladder is unremarkable. There is no free fluid. Uteru s is normal in size. Appendix is normal. There is skin thickening of especially the right lower quadr ant abdomen. There is a small defect in the skin in the inferior right lower quadrant. There is no as sociated abscess. Skeleton: There are no acute osseous findings. No suspicious bony lesions. IMPRESSION: No abscess or abnormal fluid collection. Electronically signed by: Janak Prado MD 11/23/2019 4:18 AM AIRWORTHINESS SAFETY INSPECTOR Due to temporary technical issues with the PACS/Fluency reporting system, reports are being signed by the in house radiologist as a courtesy to ensure prompt reporting. The interpreting radiologist is f ully responsible for the content of the report.
[2019-11-24] MEDS ORDERED: GLUCAGON 1 MG/VIAL IM PRN (14:14)
[2019-11-24] MEDS ORDERED: D50W 25 GM/50 ML SYRINGE/VIAL IV PRN (14:14)
[2019-11-24] MEDS ORDERED: CHLORHEXIDINE GLUCO 4% 120 ML TOP SCH (15:00)
[2019-11-24] MEDS: DOCUSATE NA 100 MG CAP PO PRN (17:42)
--- NOTE | 2019-11-24 18:29 | PN ---
Date of Progress Note: 11/24/2019 Subjective: Patient seen and examined. Chart reviewed and case discussed with RN and Dr. Reynolds. Dave leon still having some pain at the incision site. Reports some pain in her back as well. Medications: List reviewed. Physical Examination: Vital Signs: Temperature 97.3, heart rate 73, blood pressure 135/61, respirations 15, O2 of 97% on r oom air. General: Awake, alert, oriented x3, in mild distress. Morbidly obese female, ill-appearing. CV: S1, S2. Regular rate and rhythm. Peripheral pulses are present. Respiratory: Moving air well bilaterally. No wheezing or stridor. Gastrointestinal: Abdomen is soft. Tenderness to palpation around the incision site. Bowel sounds are positive. No distention. Patient does have surrounding erythema. Extremities: No clubbing, cyanosis, or edema. Neurologic: Nonfocal. Skin: Patient has edema of the abdominal wall along with abdominal wall wound with dressing in place . Minimal drainage. Laboratory Data: Sodium 142, potassium 3.9, chloride 112, CO2 of 24, BUN 13, creatinine 0.62, glucos e 182, calcium 7.6, albumin 2.7. WBC 10, H and H are 14.2 and 41.5, platelets 341. Cultures: Wound culture from the abdomen growing out 3+ staph coagulase positive. Blood cultures, n o growth to date; however, does have gram-positive cocci in clusters at 2/4 bottles. Assessment: A 44-year-old female with: 1.Abdominal wall wound with necrosis, status post debridement by Dr. Reynolds. Continue with broad-spe ctrum IV antibiotics. Wound cultures growing coagulase positive staphylococcus and blood cultures, 2 /4 bottles of gram-positive cocci. 2.Bacteremia, likely methicillin-resistant Staphylococcus aureus. Continue with IV antibiotics. Fo llow up on ID and sensitivity. 3.Diabetes mellitus type 2, non-insulin requiring with hyperglycemia, not well controlled. Hemoglob in A1c pending. 4.Essential hypertension. Patient's blood pressure has been somewhat on the low side, now improved to the 130s. 5.Acute cystitis with hematuria. Continue with IV antibiotics. 6.Morbid obesity. BMI of 43. 7.DVT prophylaxis with Lovenox. Plan: Follow up on blood cultures, ID, and sensitivity. If staph is growing, we will need echocardi ogram to rule out any vegetation and consider consultation with ID for long-term IV antibiotics. /THOMAS Voice ID: [id number] Report ID: [id number]
--- NOTE | 2019-11-24 19:26 | PN ---
Date of Progress Note: 11/24/2019 Subjective: Patient is awake, alert. No complaints. Vitals are stable. Afebrile. The cultures ar e growing out gram-positive cocci in clusters and gram-positive cocci in pairs and chains. Sensitivi ties are pending and I was told that she had blood cultures that were growing organisms in 2 bottles. Her dressing is clean, dry, intact. Assessment: Infected wound, right abdomen. Recommendations: Once we get the sensitivities, she can be discharged on appropriate antibiotics. W ound care as ordered and [facility]. /MODL Voice ID: [id number] Report ID: [id number]
[2019-11-24] MEDS: INSULIN GLARGINE 100 UNITS/ML SQ SCH (21:24)
[2019-11-24] MEDS: MUPIROCIN 2% OINT 22GM TUBE TOP SCH (21:25)
[2019-11-25] MEDS: PIPER/TAZO/NS 3.375gm 3.375 GM/100 ML BAG IVPB SCH (00:49)
[2019-11-25] MEDS: VANCOMYCIN 2 GM in NA CHLORIDE 0.9% 500 ML IVPB SCH (03:00)
[2019-11-25] MEDS: ONDANSETRON 4 MG/2 ML VIAL IV PRN ×2 (03:39→13:06)
[2019-11-25 05:51] LABS: Absolute Lymphocytes (CBC) 1.6 K/uL (0.7-4.9); Basophils % 0.6 % (0-1.3); Hematocrit 41.1 % (36.0-45.0); Lymphocytes % 11.7 % (15.3-44.8); MPV 7.1 fL (7.6-11.3)
[2019-11-25 06:34] LABS: Potassium 4.2 mmol/L (3.5-5.1)
[2019-11-25] MEDS: NA CHLORIDE 0.9% 1,000 ML IV SCH ×3 (07:00→22:00)
[2019-11-25] MEDS: INSULIN -REGULAR HUMAN 50 UNIT/0.5 ML ML SQ SCH ×4 (08:40→21:38)
[2019-11-25] MEDS: MUPIROCIN 2% OINT 22GM TUBE TOP SCH ×2 (08:40→21:40)
[2019-11-25] MEDS: ENOXAPARIN 40 MG/0.4 ML SQ SCH (08:40)
[2019-11-25] MEDS: CEFEPIME/SWI 1gm 1 ML IV SCH (09:57)
[2019-11-25] MEDS: HYDRALAZINE HCL 20 MG/ML VIAL IV PRN (12:17)
[2019-11-25] MEDS: DOCUSATE NA 100 MG CAP PO PRN (12:22)
--- NOTE | 2019-11-25 13:00 | RAD REPORT ---
EXAM DESCRIPTION: US - Renal Ultrasound-Complete - 11/25/2019 12:35 pm CLINICAL HISTORY: [place] COMPARISON: Stone Protocol dated 11/23/2019 FINDINGS: The right kidney measures 13.0 x 7.3 x 7.5 cm. The left kidney measures 14.5 x 7.3 x 6.5 cm. Renal cortical thickness and echogenicity are normal. No hydronephrosis or suspicious renal mass. Bladder is mostly contracted limiting assessment. No gross abnormality. IMPRESSION: No hydronephrosis or suspicious renal mass. Renal parenchymal echogenicity not outside of normal range.
[2019-11-25] MEDS: HYDROCODONE/APAP 5/325 MG TAB PO PRN ×2 (13:05→21:38)
[2019-11-25] MEDS: carvediloL 12.5 MG TAB PO SCH (17:12)
--- NOTE | 2019-11-25 18:04 | CON ---
Date of Consultation: 11/25/2019 Reason For Consultation: Elevated BUN and creatinine. History Of Present Illness: This is a pleasant 44-year-old female with significant past medical hist ory of diabetes, poorly controlled, complicated with a neuropathy, hypertension, hyperlipidemia, kuldip ent came to the hospital because of cellulitis/multiple abscess on the abdominal wound, the [facility]. Upon presentation to the hospital, her creatinine was within normal limits 0.8, curr ently creatinine jumped to 2.7; GFR dropped from 69 to 19. Reviewing the record for the patient's bl ood pressure, the lowest of 100. The patient did not have any CT or any contrast even though that [facility] [place] had a CT on the . Patient received vancomycin and Zosyn. There is no HAMZAH inhibitor or ARB. Aga in, there is no contrast. Patient denied any rash. Past Medical History: 1.Diabetes. 2.Hypertension. 3.Cellulitis. Past Surgical History: Drainage of abscesses. Family History: Positive for diabetes. Social History: Denies smoking. Denies drinking. Denies drugs abuse. Review of Systems: Head and Neck: No red eye. No ear pain. GI: Has abdominal pain. : No polyuria. No dysuria. No hematuria. 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 Respiratory: No shortness of breath. Cardiovascular: No chest pain. Endocrine: No polydipsia. Skin: No rash. Neurologic: Has neuropathy. Musculoskeletal: Abdominal pain. Physical Examination: Vital Signs: Blood pressure 170/92, pulse of 79. General: Patient still voiding. Chest: Clear to auscultation. Heart: S1, S2. Regular. Abdomen: Tender. Extremities: Plus edema. Laboratory Data: Sodium 137, potassium 4.2, bicarb 23, BUN 23, creatinine 2.7, glucose is 308, calci um 7.2. WBC 13.6, H and H 13.7/41.1, platelets 298. Upon presentation, H and H 15.2/44.6. Sodium 1 42, creatinine 0.6, GFR above 19. Urinalysis positive for infection, +1 protein. Vancomycin 32. Current Medications: Cefepime, vancomycin, Lovenox, hydralazine, Zofran. Glucagon, normal saline. Assessment And Plan: 1.Acute kidney injury, normal size kidney 13/14.5 secondary to vancomycin toxicity/poor perfusion, a cute tubular necrosis. I am going to continue hydration for the patient. We will hold vancomycin. We will send for urine eosinophil, even doubt about acute interstitial nephritis and we will monitor the patient. 2.Hypertension. We will start the patient on Coreg. Please avoid any HAMZAH inhibitor or ARB for the time being. We will add also calcium channel quinn and we will monitor the patient. 3.Diabetes as by the primary. 4.Abdominal cellulitis secondary to methicillin-resistant Staphylococcus aureus. We will hold the v ancomycin for the time being. Given the supratherapeutic, we will follow up vancomycin trough. Foll ow up with the primary. JESSICA/THOMAS Voice ID: [id number] Report ID: [id number]
--- NOTE | 2019-11-25 21:16 | CON ---
History Of Present Illness: Patient is a 44-year-old female. I was consulted for right lower abdomi nal abscess carbuncle which has been debrided by the surgical team. Patient denies any headache, sagar sea, vomiting, chest pain, abdominal pain, constipation, or diarrhea. Patient has significant histor y of diabetes mellitus, morbid obesity, and past history of similar lesion to the back site which has been also treated, hypertension. Denies any fever or any other discomfort at this time. Past Medical History: As per HPI. Social History: Nonsmoker, nondrinker. Family History: Noncontributory. Medications: Vancomycin. See MAR for other medications. Allergies: SULFA DRUGS. Review of Systems: A 10-point review was performed. Physical Examination: General: This is a 44-year-old female, lying in bed, not in any acute cardiopulmonary distress. Vital Signs: Temperature 98.5, pulse 81, respirations 18, blood pressure 183/100. HEENT: Unremarkable. Neck: Supple. Lungs: Clear to auscultation. Heart: S1, S2. Regular. Abdomen: Soft, nontender. Bowel sounds present. Abdominal wound noted with 100% granulation tissue . Extremities: No edema. Laboratory Data: Shows WBC 13.6, hemoglobin 13.7, platelets 298. Chemistry shows sodium 137, potass ium 4.2, chloride 109, bicarb 23, BUN 23, creatinine 2.7, glucose is 308. Laboratory Data: Micro data shows the patient has MRSA infection of the wound, sensitive to Bactrim, tetracycline, vancomycin, Levaquin, and Cipro. Assessment And Plan: A 44-year-old female with methicillin-resistant Staphylococcus aureus wound inf ection and abscess to the right lower abdominal area, most likely secondary to carbuncle formation wi th leukocytosis. We will recommend at this time Medihoney with alginate and also to continue antibio tic total course of 10 days, can be switched to oral doxycycline on discharge. Keep the area clean a nd dry. We will follow the patient as needed. Thank you Dr. Martinez for consult. NITZA/BERTHAL Voice ID: [id number] Report ID: [id number]
[2019-11-25] MEDS: INSULIN GLARGINE 100 UNITS/ML SQ SCH (21:39)
[2019-11-26] MEDS: ONDANSETRON 4 MG/2 ML VIAL IV PRN (02:55)
[2019-11-26] MEDS: HYDROCODONE/APAP 5/325 MG TAB PO PRN ×3 (03:01→19:54)
[2019-11-26] MEDS: NA CHLORIDE 0.9% 1,000 ML IV SCH ×4 (06:00→21:28)
[2019-11-26 06:12] LABS: Albumin 2.4 g/dL (3.4-5.0); Phosphorus 4.3 mg/dL (2.5-4.9); Thyroid Stimulating Hormone 0.885 uIU/mL (0.360-3.740); Uric Acid 6.3 mg/dL (2.6-6.0)
[2019-11-26] MEDS: carvediloL 12.5 MG TAB PO SCH (07:34)
[2019-11-26] MEDS ORDERED: AMLODIPINE 5 MG TAB PO SCH (09:00)
[2019-11-26] MEDS: INSULIN -REGULAR HUMAN 50 UNIT/0.5 ML ML SQ SCH ×4 (09:19→20:22)
[2019-11-26] MEDS: MUPIROCIN 2% OINT 22GM TUBE TOP SCH ×2 (09:19→19:56)
[2019-11-26] MEDS: CEFEPIME/SWI 1gm 1 ML IV SCH (09:21)
[2019-11-26] MEDS: ENOXAPARIN 30 MG/0.3 ML SQ SCH (09:21)
[2019-11-26] MEDS: DOXYCYCLINE 100 MG CAP PO SCH ×2 (09:23→19:55)
--- NOTE | 2019-11-26 12:10 | P.PN ---
Subjective Date of Service: 11/26/19 Chief Complaint: abscess on the stomach No new changes. Patient states she feels much better today and has no new complaint. Her serum creatinine trended up. Vancomycin level is still high. Physical Examination - Vital Signs Temperature: 98.4 F Blood Pressure: 161/87 Pulse: 83 Respirations: 20 Pulse Ox (%): 97 - Physical Exam General: Alert, In no apparent distress, Oriented x3 HEENT: Mucous membr. moist/pink Neck: Supple Respiratory: Clear to auscultation bilaterally, Normal air movement Cardiovascular: Regular rate/rhythm, Normal S1 S2 Gastrointestinal: Normal bowel sounds, Soft and benign Musculoskeletal: No swelling Integumentary: No rashes - Studies Microbiology Data (last 24 hrs): 11/23/19 03:04 Clean Catch Urine [place] Count - Final 11/23/19 03:04 Clean Catch Urine - Final No growth. Assessment And Plan - Current Problems (Diagnosis) (1) Abdominal wall abscess Current Visit: Yes Status: Acute (2) DM type 2 (diabetes mellitus, type 2) Current Visit: Yes Status: Acute (3) Morbid (severe) obesity due to excess calories Current Visit: Yes Status: Acute (4) Acute cystitis Current Visit: Yes Status: Acute (5) Hypertension Current Visit: Yes Status: Acute (6) Acute renal failure Current Visit: Yes Status: Acute - Plan IV vancomycin discontinued. Antibiotics changed to oral doxycycline based on MRSA sensitivity. IV hydration to treat nephropathy. Nephrology input appreciated. Monitor renal panel Continue Lantus insulin and insulin sliding scale for glucose management. Coreg and amlodipine for hypertension. Hydralazine IV p.r.n. for BP spikes.
--- NOTE | 2019-11-26 12:14 | P.PN ---
Subjective Date of Service: 11/25/19 Chief Complaint: abscess on the stomach Patient reports poor appetite. Serum creatinine noted to be elevated. Wound culture organism identification and sensitivity reviewed. Blood sugar readings have improved compared to previous values. Physical Examination - Vital Signs Temperature: 98.4 F Blood Pressure: 161/87 Pulse: 83 Respirations: 20 Pulse Ox (%): 97 - Physical Exam General: Alert, In no apparent distress, Oriented x3, Obese HEENT: Mucous membr. moist/pink Neck: Supple, JVD not distended Respiratory: Clear to auscultation bilaterally, Normal air movement Cardiovascular: No edema, Regular rate/rhythm, Normal S1 S2 Gastrointestinal: Normal bowel sounds, Soft and benign Musculoskeletal: No swelling Integumentary: No rashes Neurological: Normal speech, Normal strength at 5/5 x4 extr - Studies Microbiology Data (last 24 hrs): 11/23/19 03:04 Clean Catch Urine [place] Count - Final 11/23/19 03:04 Clean Catch Urine - Final No growth. Assessment And Plan - Current Problems (Diagnosis) (1) Abdominal wall abscess Current Visit: Yes Status: Acute (2) DM type 2 (diabetes mellitus, type 2) Current Visit: Yes Status: Acute (3) Morbid (severe) obesity due to excess calories Current Visit: Yes Status: Acute (4) Acute cystitis Current Visit: Yes Status: Acute (5) Hypertension Current Visit: Yes Status: Acute (6) Acute renal failure Current Visit: Yes Status: Acute - Plan IV vancomycin discontinued. Continue IV cefepime. Change vancomycin to doxycycline. Nephrology consult IV hydration Monitor renal panel Continue Lantus insulin and insulin sliding scale for glucose management. Coreg and amlodipine for hypertension. Hydralazine IV p.r.n. for BP spikes.
[2019-11-26 12:58] LABS: Absolute Lymphocytes (CBC) 1.5 K/uL (0.7-4.9); Basophils % 0.6 % (0-1.3); Hematocrit 39.9 % (36.0-45.0); Lymphocytes % 11.3 % (15.3-44.8); MPV 7.2 fL (7.6-11.3); RBC Red Blood Cell Count 4.58 M/uL (3.86-4.86)
[2019-11-26 13:35] LABS: Rheumatoid Factor NEG (NEG)
[2019-11-26] MEDS ORDERED: AMLODIPINE 10 MG TAB PO SCH (16:00)
[2019-11-26 16:02] LABS: Urine Appearance CLOUDY; Urine Bilirubin NEGATIVE (NEG); Urine Blood NEGATIVE (NEG); Urine Color YELLOW; Urine Glucose 1+ (NEG); Urine Protein 2+ (NEG); Urine Specific Gravity <=1.005 (1.005-1.030); Urine Urobilinogen 0.2 mg/dL (0.2-1.0); Urine pH 6.5 (5.0-7.0)
[2019-11-26 16:08] LABS: Urine Protein/Creatinine Ratio 2.92 ratio (<0.15)
[2019-11-26 16:13] LABS: Urine Microscopic Reflex ORDER UMIC
[2019-11-26 16:14] LABS: Urine Bacteria 20-50 /HPF (<20); Urine Culture Reflex Order REFLEXED; Urine Mucus 1+ /HPF (NONE SEEN); Urine RBC <5 /HPF (NONE SEEN)
[2019-11-26] MEDS: carvediloL 25 MG TAB PO SCH (17:04)
[2019-11-26] MEDS: TRAMADOL HCL 50 MG TAB PO PRN (17:04)
--- NOTE | 2019-11-26 17:11 | PN ---
Subjective: Patient is lying in bed. Denies any headache, nausea, vomiting, chest pain. Having rebeka e abdominal discomfort on the left quadrant. Objective: Vital Signs: Temperature 98, pulse 83, respirations 18, blood pressure 161/87. Lungs: Clear to auscultation. Heart: S1, S2. Regular. Abdomen: Soft. Bowel sounds present. Right lower quadrant wound noted with good granulation tissue . Laboratory Data: Shows no WBC for today. Yesterday, WBC was 13.6. Assessment And Plan: Right abdominal abscess and carbuncle, status post debridement. Cellulitis is improving. Leukocytosis. Patient is currently on oral doxycycline and Santyl to the wound site on a daily basis. We will follow the patient closely. NF/MODL Voice ID: [id number] Report ID: [id number]
--- NOTE | 2019-11-26 20:17 | PN ---
Date of Progress Note: 11/26/2019 Subjective: Patient was admitted with abdominal wall abscess/cellulitis. Patient was started on van comycin. Kidney function start declining upon arrival to the hospital. Creatinine within normal barnes it. Currently creatinine 4.2. Vancomycin random is 28 currently after 24 hour of the discharge. Dave leon still had good urine output. Physical Examination: Vital Signs: Blood pressure 161/87, pulse of 83, afebrile. : Patient had good urine output of 4 times voiding. Chest: Clear to auscultation. Heart: S1, S2. Regular. Abdomen: Mild tenderness. No guarding or rebound. Extremities: No edema. Laboratory Data: Sodium 140, potassium 4, bicarb 21, BUN 25, creatinine 4.2, GFR of 11, uric acid 6. 3, calcium 7.5, phosphorus 4.3. WBC 12.9, H and H 13.5/39.9, platelet 294. Random vancomycin 28. S erology still pending. PC ratio still pending. Renal ultrasound show normal size kidney 13/14.5. N o hydronephrosis. Assessment And Plan: 1.Acute kidney injury, multifactorial secondary to toxic acute tubular necrosis secondary to vancomy fabiano toxicity superimposed with Advil use, nonoliguric. No hyperkalemia, no acidosis. I had long dis cussion with the patient that if kidney function continue to decline, the patient may need to do a te mporary dialysis and patient in agreement. We will watch for another 24 hour if kidney function did not improve. At that time, we will proceed with the dialysis. 2.Hypertension, not controlled. I going to go ahead and increase her carvedilol to 25 mg and we malia l increase amlodipine and we will follow up. 3.Cellulitis of the abdomen secondary to methicillin-resistant Staphylococcus aureus. Follow up wit h primary. Agree with the doxycycline for the time being. Keep holding vancomycin. 4.Diabetes as by primary. JESSICA/BERTHAL Voice ID: [id number] Report ID: [id number]
[2019-11-26] MEDS: INSULIN GLARGINE 100 UNITS/ML SQ SCH (20:22)
[2019-11-27] MEDS: HYDROCODONE/APAP 5/325 MG TAB PO PRN ×3 (03:51→22:04)
[2019-11-27] MEDS: ONDANSETRON 4 MG/2 ML VIAL IV PRN (05:03)
[2019-11-27] MEDS: NA CHLORIDE 0.9% 1,000 ML IV SCH ×3 (06:14→22:00)
[2019-11-27] MEDS: carvediloL 25 MG TAB PO SCH ×2 (06:14→17:01)
[2019-11-27 06:48] LABS: Albumin 2.6 g/dL (3.4-5.0); Phosphorus 4.3 mg/dL (2.5-4.9); Potassium 4.1 mmol/L (3.5-5.1)
[2019-11-27] MEDS: DOXYCYCLINE 100 MG CAP PO SCH (08:36)
[2019-11-27] MEDS: AMLODIPINE 10 MG TAB PO SCH (08:36)
[2019-11-27] MEDS: MUPIROCIN 2% OINT 22GM TUBE TOP SCH ×2 (08:37→20:44)
[2019-11-27] MEDS: INSULIN -REGULAR HUMAN 50 UNIT/0.5 ML ML SQ SCH ×4 (08:37→20:41)
[2019-11-27] MEDS: ENOXAPARIN 30 MG/0.3 ML SQ SCH (08:37)
[2019-11-27] MEDS ORDERED: VANCOMYCIN/NS 1 gm 1 GM/250 ML BAG IV SCH (09:00)
--- NOTE | 2019-11-27 13:15 | P.PN ---
Subjective Date of Service: 11/27/19 Chief Complaint: abscess on the stomach Patient has no complain today. She states she is eating better. Serum creatinine has not improved yet, may be plateaued. Wound culture growing multiple organisms all sensitive to fluoroquinolones. Physical Examination - Vital Signs Temperature: 98.5 F Blood Pressure: 119/68 Pulse: 63 Respirations: 20 Pulse Ox (%): 93 - Physical Exam General: Alert, In no apparent distress, Obese HEENT: Mucous membr. moist/pink Neck: Supple Respiratory: Clear to auscultation bilaterally, Normal air movement Cardiovascular: No edema, Regular rate/rhythm, Normal S1 S2 Gastrointestinal: Hypoactive, Soft and benign, No tenderness Integumentary: No rashes Assessment And Plan - Current Problems (Diagnosis) (1) Abdominal wall abscess Current Visit: Yes Status: Acute (2) DM type 2 (diabetes mellitus, type 2) Current Visit: Yes Status: Acute (3) Morbid (severe) obesity due to excess calories Current Visit: Yes Status: Acute (4) Acute cystitis Current Visit: Yes Status: Acute (5) Hypertension Current Visit: Yes Status: Acute (6) Acute renal failure Current Visit: Yes Status: Acute - Plan Antibiotics scaled down to oral Levaquin Nephrology is following. Serum creatinine and maybe plateaued. Continue IV hydration Monitor renal panel Continue Lantus insulin and insulin sliding scale for glucose management. Coreg and amlodipine for hypertension. Hydralazine IV p.r.n. for BP spikes.
[2019-11-27] MEDS ORDERED: levoFLOXacin 500 MG TAB PO ONE (13:30)
[2019-11-27] MEDS: levoFLOXacin 500 MG TAB PO SCH (13:44)
--- NOTE | 2019-11-27 20:11 | PN ---
Subjective: The patient is lying in bed. Denies any headache, nausea, vomiting, chest pain, abdomin al pain, constipation, or diarrhea. Unable to eat much today as her kidneys are not able to get bett er, possible dialysis tomorrow. Objective: Vital Signs: Temperature 98.5, pulse 63, respirations 20, blood pressure 119/68. Lungs: Basal crackles. Heart: S1, S2. Regular. Abdomen: Soft, nontender. Bowel sounds present. Right-sided lower quadrant abdominal wound noted w ith good granulation tissue. No slough. Laboratory Data: WBC 12.9, hemoglobin 13.5, platelets are 294. Chemistry shows sodium 139, potassiu m 4.1, chloride 111, bicarb 18, BUN 30, creatinine 4.79, glucose is 238. Abdominal wound with MRSA strep agalactiae and Enterococcus faecalis. Patient is currently being bruce ated with Levaquin. Assessment/plan: 1.The patient in renal failure, possible dialysis tomorrow if not improved. 2.Abdominal abscess, status post incision and drainage of carbuncle and cellulitis of abdominal wall , improving. Continue current antibiotic and wound care with Danielayl. We will follow the patient zachary angel. Prognosis is guarded. NF/MODL Voice ID: [id number] Report ID: [id number]
[2019-11-27] MEDS: INSULIN GLARGINE 100 UNITS/ML SQ SCH (20:41)
--- NOTE | 2019-11-28 00:46 | PN ---
Date of Progress Note: 11/27/2019 History: Patient was admitted with abdominal wall abscess/cellulitis. Patient had acute kidney inju ry secondary to vanc toxicity superimposed with ibuprofen. Physical Examination: Vital Signs: Blood pressure of 127/84, pulse of 79. General: Patient had good urine output of 1800. Chest: Clear to auscultation. Heart: S1, S2. Regular. Abdomen: Soft, tender. Extremities: No edema. Laboratory Data: WBC 12.9, H and H 13.5 and 39.9, platelets 294. Sodium 139, potassium 4.1, bicarb 18, BUN 30, creatinine 4.7, GFR of 10. Calcium 7.8, phosphor 4.3. Current Medications: The patient is on include, 1.Levaquin. 2.Lovenox. 3.Carvedilol 25 b.i.d. 4.Norvasc. 5.Hydralazine. 6.Zofran. 7.IV fluid. Assessment And Plan: 1.Acute kidney injury secondary to toxic acute tubular necrosis secondary to poor perfusion, superim posed with toxic acute tubular necrosis secondary to vanc toxicity superimposed with steroid-induced nephropathy, nonoliguric. No hyperkalemia, mild acidosis. I had long discussion with the patient th at if kidney function continue to deteriorate, the patient is going to need dialysis. Patient in agr eement. We will arrange for dialysis catheter tomorrow and we will follow up the lab. If lab showin g any improvement, we will cancel the procedure, but if kidney function continue to decline especiall y with the presence of starting acidosis, we will proceed with the PermCath and dialysis. 2.Hypertension, currently blood pressure controlled, optimal. Continue current medication. Avoid A CE inhibitor. 3.Chronic kidney disease secondary to diabetes nephropathy with acute kidney injury as above. 4.Abdominal wall cellulitis/abscess. Continue current antibiotic, dose appropriate. JESSICA/MODL Voice ID: [id number] Report ID: [id number]
[2019-11-28] MEDS: MORPHINE 2 MG/ML SYR IV PRN ×2 (04:20→11:52)
[2019-11-28] MEDS: ONDANSETRON 4 MG/2 ML VIAL IV PRN (04:20)
[2019-11-28] MEDS: carvediloL 25 MG TAB PO SCH ×2 (05:27→18:14)
[2019-11-28 06:27] LABS: Albumin 2.5 g/dL (3.4-5.0); Phosphorus 4.3 mg/dL (2.5-4.9); Potassium 4.3 mmol/L (3.5-5.1)
[2019-11-28] MEDS: INSULIN -REGULAR HUMAN 50 UNIT/0.5 ML ML SQ SCH ×4 (07:30→20:45)
[2019-11-28] MEDS ORDERED: CEFAZOLIN/NS 1gm 1 GM/50 ML BAG IVPB SCH (07:45)
[2019-11-28] MEDS ORDERED: CEFAZOLIN/SWI 1gm 1 GM/10 ML SYR IV SCH (07:45)
[2019-11-28] MEDS ORDERED: CEFAZOLIN/SWI 1gm 1 GM/10 ML SYR ONE ×2 (08:10→08:55)
[2019-11-28] MEDS ORDERED: FENTANYL CITR 100 MCG/2 ML ONE ×2 (08:39→09:30)
[2019-11-28] MEDS ORDERED: propofoL 200 MG/20 ML VIAL IV ONE ×2 (08:39→09:30)
[2019-11-28] MEDS ORDERED: LIDOCAINE 2% MPF 5 ML VIAL ONE (08:40)
[2019-11-28] MEDS ORDERED: ONDANSETRON 4 MG/2 ML VIAL ONE (08:41)
[2019-11-28] MEDS ORDERED: NS 0.9% VIAL 10 ML ONE (08:43)
[2019-11-28] MEDS ORDERED: NA CHLORIDE 0.9% 100 ML IV ONE (08:43)
[2019-11-28] MEDS ORDERED: LIDOCAINE 1% 20 ML MDV ONE (08:43)
[2019-11-28] MEDS: MUPIROCIN 2% OINT 22GM TUBE TOP SCH ×2 (09:00→20:46)
[2019-11-28] MEDS: ENOXAPARIN 30 MG/0.3 ML SQ SCH (09:00)
[2019-11-28] MEDS ORDERED: EPHEDRINE SULF 50 MG/ML VIAL ONE (09:20)
[2019-11-28] MEDS: HEPARIN 5000 UNIT/ML 1 ML VIAL ONE ×2 (09:37→09:59)
[2019-11-28] MEDS: NA CHLORIDE 0.9% 1,000 ML IV SCH ×4 (09:54→11:58)
[2019-11-28] MEDS ORDERED: NA CHLORIDE 0.9% 1,000 ML ONE (09:55)
--- NOTE | 2019-11-28 10:10 | P.OP ---
Preoperative diagnosis: ARF Postoperative diagnosis: same Primary procedure: OLIVA Stuart, Intra-operative Fluoroscopy Anesthesia: General Estimated blood loss: min Specimen: none Findings: as above Complications: None Transferred to: Recovery Room Condition: Good
--- NOTE | 2019-11-28 11:37 | RAD REPORT ---
EXAM DESCRIPTION: RAD - Chest Single View - 11/28/2019 10:52 am CLINICAL HISTORY: s/p Tesio COMPARISON: Chest Single View dated 11/23/2019 TECHNIQUE: AP portable chest image was obtained 11/28/2019 10:52 am . FINDINGS: Low lung volumes noted. Right-side Tessio catheter has been placed. Tip is in the mid SVC. No pneumothorax. Cardiac silhouette is similar to comparison. Heart and vasculature structures are a ccentuated due to portable technique and shallow inspiration. IMPRESSION: Right-sided Tessio catheter in good position. No pneumothorax.
[2019-11-28] MEDS: AMLODIPINE 10 MG TAB PO SCH (11:45)
[2019-11-28] MEDS: HYDROCODONE/APAP 5/325 MG TAB PO PRN ×2 (13:08→20:44)
--- NOTE | 2019-11-28 13:54 | P.PN ---
Subjective Date of Service: 11/28/19 Chief Complaint: abscess on the stomach Subjective: New changes Subjective pt admitted for cellulites/abscess, developed ARNOLD today S/P dialysis catheter placement HD today will start outpatient dialysis arrangement at [facility] , will cont inpatient dialysis for now cont IVF Physical exam general: AAOX3, NAD , obese Neck; Supple, No elevated JVD hear: RRR, normal S1,2 no murmur or rub Chest: CTAB, no rlaes or wheezes Abdomen: Soft , Nt Extremities No edema or ulcer ARNOLD possibly vanco induced ATN will start on HD today will cont to monitor RFT HTN will reduce amlodipine to 5mg daily abdominal wall infection on levaquin off vancomycin Physical Examination - Vital Signs Temperature: 96.9 F Blood Pressure: 123/73 Pulse: 75 Respirations: 15 Pulse Ox (%): 91 - Studies Microbiology Data (last 24 hrs): 11/23/19 02:15 Blood - Blood Aerobic Blood Culture - Final No growth in 5 days. 11/23/19 02:15 Blood - Blood Anaerobic Blood Culture - Final No growth in 5 days. 11/23/19 01:55 Blood - Blood Aerobic Blood Culture - Final No growth in 5 days.
--- NOTE | 2019-11-28 14:55 | RAD REPORT ---
EXAM DESCRIPTION: RAD - Fluoroscopy <1 Hour - 11/28/2019 2:47 pm FINDINGS: There were 8 portable C-arm views obtained during fluoroscopic assisted placement of a Maria Fernanda sio catheter. No suspicious or unexpected findings. Fluoro time was 0.8 minutes.
--- NOTE | 2019-11-28 16:23 | PN ---
Subjective: Patient had Eran catheter placed in today for possible dialysis starting today as her kidney function has not improved. Patient is somewhat depressed and anxious about getting dialysis. Objective: Vital Signs: Temperature 98, pulse 81, respirations 16, blood pressure 119/71. Lungs: Basal crackles. Heart: S1, S2. Regular. Abdomen: Soft. Bowel sounds present. Abdominal wound noted. Extremities: 1+ edema. Laboratory Data: WBC 12.9, hemoglobin 13, platelets are 294 from November 26. Medications: Currently, patient is on Levaquin and adjusted to her renal condition with a creatinine of 5.23. Sodium 140, potassium 4.3, chloride 111, bicarb 21. Assessment And Plan: Methicillin-resistant Staphylococcus aureus infection of the right abdominal wa ll, which had abscess, status post incision and drainage; renal failure, needing dialysis. We will f ollow the patient as needed. Continue current medication and Santyl daily to the wound site. Abisai romo was also comforted regarding her dialysis. We will follow the patient as needed. NF/MODL Voice ID: [id number] Report ID: [id number]
[2019-11-28 16:58] LABS: Hepatitis C Virus RNA (PCR)log <1.18 log IU/mL
--- NOTE | 2019-11-28 19:23 | P.PN ---
Subjective Date of Service: 11/28/19 Chief Complaint: abscess on the stomach Patient has no complain. Serum creatinine trended up to 5. Nephrology is planning for hemodialysis. Physical Examination - Vital Signs Temperature: 98.8 F Blood Pressure: 147/82 Pulse: 79 Respirations: 16 Pulse Ox (%): 93 - Studies Microbiology Data (last 24 hrs): 11/23/19 02:15 Blood - Blood Aerobic Blood Culture - Final No growth in 5 days. 11/23/19 02:15 Blood - Blood Anaerobic Blood Culture - Final No growth in 5 days. 11/23/19 01:55 Blood - Blood Aerobic Blood Culture - Final No growth in 5 days. Assessment And Plan - Current Problems (Diagnosis) (1) Abdominal wall abscess Current Visit: Yes Status: Acute (2) DM type 2 (diabetes mellitus, type 2) Current Visit: Yes Status: Acute (3) Morbid (severe) obesity due to excess calories Current Visit: Yes Status: Acute (4) Acute cystitis Current Visit: Yes Status: Acute (5) Hypertension Current Visit: Yes Status: Acute (6) Acute renal failure Current Visit: Yes Status: Acute - Plan Continue oral Levaquin Nephrology is following. Temporary dialysis catheter placed. Hemodialysis performed today. Continue IV hydration Monitor renal panel Continue Lantus insulin and insulin sliding scale for glucose management. Coreg and amlodipine for hypertension. Hydralazine IV p.r.n. for BP spikes.
[2019-11-28] MEDS: INSULIN GLARGINE 100 UNITS/ML SQ SCH (20:45)
--- NOTE | 2019-11-28 21:05 | OP ---
Date of Procedure: 11/28/2019 Surgeon: Naveed Reynolds MD Preoperative Diagnosis: Acute renal failure. Postoperative Diagnosis: Acute renal failure. Procedure: Placement of right IJ Tesio catheter, interpretation of intraoperative fluoroscopy. Estimated Blood Loss: Minimal. Specimen: None. Findings: Difficult to pass the dilators at the mid IJ level. I had to approach it through just abo ve the clavicular head and we were able to get better access into the SVC. Anesthesia: General. Complications: None. Patient tolerated the procedure in stable condition, taken to Recovery in good general condition. Procedure In Detail: Patient was brought to the OR, placed in supine position. General anesthesia w as begun. Patient was prepped and draped in the usual sterile fashion. Lidocaine 1% infiltrated loc ally. An 18-gauge needle was used to access the right IJ vein. Guidewire was passed without difficu lty. A counterincision was made. A tunneling device was used to tunnel the catheter between the 2 w ounds. Then, the vein was attempted to be dilated, however, the guidewire kept kinking just above th e clavicle. So, at this point, several attempts were made over here without success. Then, Dr. Canela was consulted for access to just above the clavicular head and the IJ and he was easily able to get into the IJ and into the SVC. Guidewire was passed. Position was confirmed with fluoroscopy. Count erincision was made. Tunneling device was used to tunnel the catheter between the 2 wounds. Selding er technique was used. The vein was dilated and then tip of the catheter was placed in the SVC under fluoroscopy. Catheter was flushed with heparin and packed with heparin with good blood flow. Jessie ter was secured with 2-0 nylon and 3-0 chromic was used to close all the wounds. Sterile dressing wa s applied. Patient was awakened and taken to Recovery in good general condition. Chest x-ray has be en ordered. /MODL Voice ID: [id number] Report ID: [id number]
[2019-11-29] MEDS: HYDROCODONE/APAP 5/325 MG TAB PO PRN ×3 (03:19→20:22)
[2019-11-29] MEDS: NA CHLORIDE 0.9% 1,000 ML IV SCH (05:00)
[2019-11-29] MEDS: carvediloL 25 MG TAB PO SCH ×2 (05:00→16:35)
[2019-11-29 07:03] LABS: Albumin 2.3 g/dL (3.4-5.0); Potassium 4.1 mmol/L (3.5-5.1)
[2019-11-29] MEDS: INSULIN -REGULAR HUMAN 50 UNIT/0.5 ML ML SQ SCH ×4 (08:47→20:23)
[2019-11-29] MEDS: MUPIROCIN 2% OINT 22GM TUBE TOP SCH ×2 (08:50→20:24)
[2019-11-29] MEDS: ENOXAPARIN 30 MG/0.3 ML SQ SCH ×2 (08:50→08:59)
[2019-11-29] MEDS ORDERED: AMLODIPINE 5 MG TAB PO SCH (09:00)
[2019-11-29] MEDS ORDERED: HYDROCODONE/APAP 5/325 MG TAB PO PRN (11:22)
[2019-11-29] MEDS: levoFLOXacin 500 MG TAB PO SCH (13:52)
--- NOTE | 2019-11-29 14:44 | P.PN ---
Subjective Date of Service: 11/29/19 Chief Complaint: abscess on the stomach Patient complaining of back pain. She is status post hemodialysis yesterday. Serum creatinine has trended down. Physical Examination - Vital Signs Temperature: 97.8 F Blood Pressure: 170/96 Pulse: 81 Respirations: 15 Pulse Ox (%): 95 - Physical Exam General: Alert, In no apparent distress, Oriented x3 HEENT: Mucous membr. moist/pink Neck: Supple, JVD not distended Respiratory: Clear to auscultation bilaterally, Normal air movement Cardiovascular: No edema, Regular rate/rhythm, Normal S1 S2 Gastrointestinal: Normal bowel sounds, Soft and benign, No tenderness Musculoskeletal: No swelling, No tenderness Neurological: Normal speech, Normal strength at 5/5 x4 extr - Studies Microbiology Data (last 24 hrs): 11/23/19 01:55 Blood - Blood Aerobic Blood Culture - Final No growth in 5 days. 11/23/19 01:55 Blood - Blood Anaerobic Blood Culture - Final Assessment And Plan - Current Problems (Diagnosis) (1) Abdominal wall abscess Current Visit: Yes Status: Acute (2) DM type 2 (diabetes mellitus, type 2) Current Visit: Yes Status: Acute (3) Morbid (severe) obesity due to excess calories Current Visit: Yes Status: Acute (4) Acute cystitis Current Visit: Yes Status: Acute (5) Hypertension Current Visit: Yes Status: Acute (6) Acute renal failure Current Visit: Yes Status: Acute - Plan Continue oral Levaquin Nephrology is following. Temporary dialysis catheter placed. Hemodialysis performed today. Further hemodialysis per nephrology. Continue IV hydration Monitor renal panel Continue Lantus insulin and insulin sliding scale for glucose management. Coreg and amlodipine for hypertension.
[2019-11-29] MEDS: AMLODIPINE 5 MG TAB PO SCH (15:00)
[2019-11-29] MEDS: INSULIN GLARGINE 100 UNITS/ML SQ SCH (20:23)
--- NOTE | 2019-11-30 01:20 | PN ---
Date of Progress Note: 11/29/2019 Subjective: Patient was admitted with a cellulitis of the abdomen abscess. After debridement, patijenae borges had acute kidney injury secondary to vancomycin toxicity. Physical Examination: Vital Signs: When I saw the patient, blood pressure of 145/84, pulse of 80. Afebrile. Chest: Clear to auscultation. Heart: S1, S2, regular. Abdomen: Mild tenderness. Extremities: No edema. Laboratory Data: H and H 13.5/39.9. Sodium 140, potassium 4.1, bicarb 24, BUN 25, creatinine 4.3, c alcium 7.7, phos 4.4. Assessment And Plan: 1.Acute kidney injury secondary to toxic acute tubular necrosis, vancomycin toxicity, nonoliguric. We will continue dialysis today in her second session. 2.Hypertension, controlled optimal. Continue current medication. 3.Diabetes as by her primary. 4.Cellulitis, continue Levaquin. JESSICA/THOMAS Voice ID: [id number] Report ID: [id number]
[2019-11-30] MEDS: DOCUSATE NA 100 MG CAP PO PRN (03:22)
[2019-11-30] MEDS: HYDROCODONE/APAP 5/325 MG TAB PO PRN ×3 (03:22→21:54)
[2019-11-30] MEDS: carvediloL 25 MG TAB PO SCH ×2 (05:37→16:41)
[2019-11-30 06:43] LABS: Albumin 2.5 g/dL (3.4-5.0); Phosphorus 4.3 mg/dL (2.5-4.9); Potassium 3.9 mmol/L (3.5-5.1)
[2019-11-30] MEDS: ENOXAPARIN 30 MG/0.3 ML SQ SCH (09:00)
[2019-11-30] MEDS: MUPIROCIN 2% OINT 22GM TUBE TOP SCH ×2 (09:00→21:00)
[2019-11-30] MEDS: AMLODIPINE 5 MG TAB PO SCH (09:36)
[2019-11-30] MEDS: INSULIN -REGULAR HUMAN 50 UNIT/0.5 ML ML SQ SCH ×4 (09:37→21:00)
--- NOTE | 2019-11-30 11:28 | P.PN ---
Subjective Date of Service: 11/30/19 Chief Complaint: abscess on the stomach Patient has no complaint. She is status post hemodialysis x 1. Physical Examination - Vital Signs Temperature: 98.0 F Blood Pressure: 127/69 Pulse: 80 Respirations: 18 Pulse Ox (%): 95 - Physical Exam General: Alert, In no apparent distress HEENT: Mucous membr. moist/pink Neck: JVD not distended Respiratory: Clear to auscultation bilaterally, Normal air movement Cardiovascular: No edema, Regular rate/rhythm, Normal S1 S2 Gastrointestinal: Normal bowel sounds, Soft and benign, No tenderness Musculoskeletal: No swelling - Studies Microbiology Data (last 24 hrs): 11/23/19 01:55 Blood - Blood Aerobic Blood Culture - Final No growth in 5 days. 11/23/19 01:55 Blood - Blood Anaerobic Blood Culture - Final Assessment And Plan - Current Problems (Diagnosis) (1) Abdominal wall abscess Current Visit: Yes Status: Acute (2) DM type 2 (diabetes mellitus, type 2) Current Visit: Yes Status: Acute (3) Morbid (severe) obesity due to excess calories Current Visit: Yes Status: Acute (4) Acute cystitis Current Visit: Yes Status: Acute (5) Hypertension Current Visit: Yes Status: Acute (6) Acute renal failure Current Visit: Yes Status: Acute - Plan Continue oral Levaquin. Topical Bactroban. Nephrology is following. Temporary dialysis catheter placed. Further hemodialysis per nephrology. Monitor renal panel Continue Lantus insulin and insulin sliding scale for glucose management. Coreg and amlodipine for hypertension.
[2019-11-30] MEDS ORDERED: HYDROCODONE/APAP 5/325 MG TAB PO PRN (12:40)
[2019-11-30] MEDS: HYDRALAZINE HCL 20 MG/ML VIAL IV PRN (12:47)
[2019-11-30 14:26] LABS: HIV AG/AB 4TH GEN Non-reactive (Non-reactive)
--- NOTE | 2019-11-30 19:37 | PN ---
Date of Progress Note: 11/30/2019 Subjective: Patient was admitted with abdominal cellulitis, had acute kidney injury, nonoliguric sec ondary to vancomycin toxicity/ . Patient was initiated on dialysis today after second sessi on of dialysis. Physical Examination: Vital Signs: Blood pressure 127/69, pulse of 80, afebrile. Chest: Clear to auscultation. Heart: S1, S2. Regular. Abdomen: Soft. Mild tenderness. No guarding or rebound. Extremities: Trace edema. Laboratory Data: WBC 12.9, H and H 13.5/39.9. Sodium 146, potassium 3.9, bicarb 22, BUN 31, creatin ine 4.5, calcium 8.3, phosphorus 4.3. Medications: Current medications the patient on include Levaquin 500 every 48 hours, Lovenox, amlodi pine 5 mg daily, carvedilol, Zofran. Assessment And Plan: 1.Acute kidney injury secondary to toxic acute tubular necrosis secondary to infection/vancomycin to xicity, nonoliguric, initiated dialysis. We will dialyze today. We are waiting for placement as out patient. 2.Hypertension. We just started amlodipine yesterday. We will follow up response. Follow up after dialysis. 3.Abdominal wall infection. Follow up with primary. Continue Levaquin. JESSICA/THOMAS Voice ID: [id number] Report ID: [id number]
[2019-11-30] MEDS: INSULIN GLARGINE 100 UNITS/ML SQ SCH (21:50)
[2019-12-01 04:47] LABS: HBsAG Nonreactive (Nonreactive)
[2019-12-01] MEDS: carvediloL 25 MG TAB PO SCH ×2 (05:01→17:02)
[2019-12-01] MEDS: ENOXAPARIN 30 MG/0.3 ML SQ SCH (09:00)
[2019-12-01] MEDS: MUPIROCIN 2% OINT 22GM TUBE TOP SCH ×2 (09:00→21:00)
[2019-12-01] MEDS: AMLODIPINE 5 MG TAB PO SCH (09:38)
[2019-12-01] MEDS: HYDROCODONE/APAP 5/325 MG TAB PO PRN ×3 (09:40→23:13)
[2019-12-01] MEDS: INSULIN -REGULAR HUMAN 50 UNIT/0.5 ML ML SQ SCH ×4 (09:41→21:46)
[2019-12-01 09:42] LABS: Albumin 2.5 g/dL (3.4-5.0); Phosphorus 3.8 mg/dL (2.5-4.9); Potassium 3.8 mmol/L (3.5-5.1)
--- NOTE | 2019-12-01 11:24 | RAD REPORT ---
EXAM DESCRIPTION: CT - Soft Tissue Neck Wo Contr - 12/01/2019 11:03 am CLINICAL HISTORY: Neck pain/ neck swelling COMPARISON: None TECHNIQUE: Computed axial tomography of the neck was obtained. IV contrast was not requested. Coron al and sagittal reconstruction was performed. All CT scans are performed using dose optimization technique as appropriate and may include automated exposure control or mA/KV adjustment according to patient size. FINDINGS: The pharynx, tongue base, larynx and subglottic trachea appear unremarkable The parotid, submandibular and thyroid glands appear unremarkable. No lymphadenopathy is seen A portion of a right central venous catheter is seen. A a right neck hematoma is not present. IMPRESSION: Right neck hematoma is not present.
[2019-12-01] MEDS: levoFLOXacin 500 MG TAB PO SCH (14:34)
[2019-12-01] MEDS: DOCUSATE NA 100 MG CAP PO PRN (17:02)
--- NOTE | 2019-12-01 17:22 | P.PN ---
Subjective Date of Service: 12/01/19 Chief Complaint: abscess on the stomach Patient has no complaint. She is status post hemodialysis x 2. Creatinine has trended down to 3.6. Erythema noted on the back of the right ear adjacent to site of entry for the dialysis catheter. Physical Examination - Vital Signs Temperature: 97.3 F Blood Pressure: 149/79 Pulse: 82 Respirations: 20 Pulse Ox (%): 95 - Physical Exam General: Alert, In no apparent distress, Oriented x3 HEENT: Mucous membr. moist/pink Neck: Supple, JVD not distended, Other (Erythema in the right postauricular area.) Respiratory: Clear to auscultation bilaterally, Normal air movement Cardiovascular: No edema, Regular rate/rhythm, Normal S1 S2 Gastrointestinal: Normal bowel sounds, Soft and benign, Non-distended Musculoskeletal: No swelling Integumentary: No rashes Assessment And Plan - Current Problems (Diagnosis) (1) Abdominal wall abscess Current Visit: Yes Status: Acute (2) DM type 2 (diabetes mellitus, type 2) Current Visit: Yes Status: Acute (3) Morbid (severe) obesity due to excess calories Current Visit: Yes Status: Acute (4) Acute cystitis Current Visit: Yes Status: Acute (5) Hypertension Current Visit: Yes Status: Acute (6) Acute renal failure Current Visit: Yes Status: Acute - Plan Continue oral Levaquin. Topical Bactroban. CT soft tissue of neck result reviewed: No neck hematoma. Nephrology is following. Temporary dialysis catheter placed. Patient is planned for temporary outpatient hemodialysis. Monitor renal panel Continue Lantus insulin and insulin sliding scale for glucose management. Coreg and amlodipine for hypertension. Patient is waiting for hemodialysis seat.
--- NOTE | 2019-12-01 19:20 | PN ---
Subjective: Patient is lying in bed, sitting in a wheelchair. Denies any headache, nausea, vomiting , chest pain, abdominal pain, constipation. Had already 2 dialysis since I saw her last time. Objective: Vital Signs: Temperature 97.3, pulse 79, respirations 20, blood pressure 149/79. Lungs: Clear to auscultation. Heart: S1, S2. Regular. Abdomen: Soft, nontender. Bowel sounds present. Abdominal wound noted. Extremities: Trace edema. Laboratory Data: WBC 12.9, hemoglobin 13.5, platelets are 294. Chemistry shows sodium 141, potassiu m 3.8, chloride 108, bicarb 27, BUN 22, creatinine 3.6, glucose is 271. Assessment And Plan: Methicillin-resistant Staphylococcus aureus infection of the right abdominal wa ll with cellulitis, Enterococcus faecalis also positive. Continue current antibiotic. Continuous lo david wound care and Levaquin. We will follow the patient as needed. NF/MODL Voice ID: [id number] Report ID: [id number]
[2019-12-01] MEDS: INSULIN GLARGINE 100 UNITS/ML SQ SCH (21:44)
[2019-12-01] MEDS: HYDRALAZINE HCL 20 MG/ML VIAL IV PRN (21:46)
--- NOTE | 2019-12-02 03:25 | PN ---
Date of Progress Note: 12/01/2019 History Of Present Illness: Acute kidney injury, nonoliguric secondary to vancomycin toxicity. Bebe ent was started on dialysis and received dialysis yesterday. Patient has nonoliguric urine output. There is no uremic symptomatology. Review of Systems: Patient denies PND, orthopnea. Denies nausea, vomiting. Physical Examination: Lungs: Clear to auscultation bilaterally. Heart: S1-S2. Abdomen: Soft, benign. Extremities: Trace edema. Laboratory Data: WBC 12.9, hemoglobin 13.5, platelet count 294,000. Chemistries show sodium 141, po tassium 3.8, chloride 108, CO2 of 27, BUN 22, creatinine 3.68, calcium 8.3, phosphorus 3.8. Impression And Plan: 1.Acute on chronic kidney injury. Patient received dialysis yesterday. Monitor urine output and ch surjit renal panel. Plan is to order dialysis. According to lab work, resolved. Patient developed acu te tubular necrosis superimposed with vancomycin toxicity. Patient has nonoliguric urine output. Co ntinue low-sodium diet. 2.Hypertension. Blood pressure is in acceptable control. Continue calcium channel quinn. 3.Abdominal wall infection. Patient is on Levaquin. EB/MODL Voice ID: [id number] Report ID: [id number]
[2019-12-02] MEDS: carvediloL 25 MG TAB PO SCH ×2 (05:01→17:12)
[2019-12-02] MEDS: HYDROCODONE/APAP 5/325 MG TAB PO PRN (05:01)
[2019-12-02 05:49] LABS: Absolute Lymphocytes (CBC) 2.4 K/uL (0.7-4.9); Basophils % 1.3 % (0-1.3); Lymphocytes % 21.4 % (15.3-44.8); RBC Red Blood Cell Count 4.39 M/uL (3.86-4.86)
[2019-12-02 06:58] LABS: Potassium 3.9 mmol/L (3.5-5.1)
[2019-12-02] MEDS: ENOXAPARIN 30 MG/0.3 ML SQ SCH (08:31)
[2019-12-02] MEDS: AMLODIPINE 5 MG TAB PO SCH (08:31)
[2019-12-02] MEDS: INSULIN -REGULAR HUMAN 50 UNIT/0.5 ML ML SQ SCH ×3 (08:31→17:12)
[2019-12-02] MEDS: MUPIROCIN 2% OINT 22GM TUBE TOP SCH (08:32)
[2019-12-02 09:46] VITALS: O2SAT 95
--- NOTE | 2019-12-02 16:19 | PN ---
Date of Progress Note: 12/02/2019 Subjective: Patient was admitted with cellulitis. Patient developed acute kidney injury secondary t o Advil and vancomycin, nonoliguric. Patient is status post dialysis Sunday. Plan to do another s ession today. Physical Examination: Vital Signs: Blood pressure 147/77, pulse of 74. Patient had good urine output. Chest: Clear to auscultation. Heart: S1, S2. Regular. Abdomen: Soft, nontender. Extremities: Trace edema. Laboratory Data: WBC 11, H and H 12.8/38. Sodium 142; potassium 3.9; bicarb 24; BUN 27; creatinine 3.8, this is the predialysis, yesterday it was 3.6; calcium 8.8. Current Medications: 1.Levaquin. 2.Lovenox. 3.Carvedilol. 4.Amlodipine. Assessment And Plan: 1.Acute kidney injury secondary to Advil and vancomycin, nonoliguric, possible showing some recovery . We will continue dialysis for today. Patient had already chair on the dialysis facility. We will follow up recovery as outpatient. 2.Hypertension, controlled, optimal. Continue current medication. 3.Diabetes as by primary. 4.Abdominal wall cellulitis, status post debridement. Follow up with hospitalist. JESSICA/THOMAS Voice ID: [id number] Report ID: [id number]
--- NOTE | 2019-12-02 17:13 | PN ---
Date of Progress Note: 12/02/2019 Subjective: Patient seen and examined. Chart reviewed. Case discussed with RN and Dr. Reynolds as wel l as Dr. Shaw. Patient is doing well. Awaiting chair time for her dialysis. Otherwise, her wou nds are healing well. Medications: List reviewed. Physical Examination: Vital Signs: Temperature 97.3, heart rate 74, blood pressure 147/77, respirations 20, O2 95% on room air. General: Awake, alert, oriented x3, not in any acute distress. Morbidly obese female. CV: S1, S2. Regular rate and rhythm. Peripheral pulses present. Respiratory: Moving air well bilaterally. No wheezing or stridor. No use of accessory muscles. Gastrointestinal: Abdomen is soft. Mild tenderness to palpation around the incision site, clean, dr y, and intact. Dressing in place. Bowel sounds positive. Extremities: No clubbing, cyanosis, or edema. Neurologic: Nonfocal. Laboratory Data: Sodium 142, potassium 3.9, chloride 110, CO2 of 24, BUN 27, creatinine 3.87, glucos e 181, calcium 8.8. WBC 11, H and H 12.8 and 38, platelets 413, neutrophils 65%. Wound cultures fro m the abdomen growing out MRSA, streptococcus, and Enterococcus faecalis, sensitive to Levaquin. Blo od cultures, no growth to date. Assessment: 1.Abdominal wall abscess secondary to methicillin-resistant Staphylococcus aureus, streptococcus and enterococcus, currently on Levaquin status post incision and drainage by Dr. Reynolds. Continue with w ound care. 2.Acute kidney injury secondary to nonsteroidal anti-inflammatory drug use. Uncontrolled diabetes a nd hypertension, possibly vancomycin induced, improving. Patient is on hemodialysis. Per Nephrology , we will likely need to continue dialysis for several months before she is able to get off. We will continue to monitor creatinine and electrolytes. 3.Diabetes mellitus type 2, insulin requiring with hyperglycemia, not well controlled. Hemoglobin A 1c is 12.4%. Counseled, patient will need diabetic education as an outpatient. We will continue sli ding scale insulin. 4.Morbid obesity, body mass index 44.9. 5.Acute cystitis without hematuria. Urine culture, no growth x2, treated with antibiotics. 6.Essential hypertension, stable. Continue medications. Plan: Continue wound care. Discharge once outpatient hemodialysis has been set up at [facility]. Othe rwise, medically stable. White blood cell count is trending down. Afebrile. No signs of sepsis. SA/MODL Voice ID: [id number] Report ID: [id number]
[2019-12-02 17:41] VITALS: TEMP 97.9
[2019-12-02 18:36] VITALS: BP 150/80
--- NOTE | 2019-12-03 02:35 | DS ---
Date of Discharge: 12/02/2019 Consultants: 1. Dr. Shaw with Nephrology. 2. Dr. Barahona and Dr. Whitley with Nephrology. 3. Dr. Reynolds with General Surgery. 4. Dr. Guzman with Infectious Disease. Procedures: 1. On 11/28/2019, right IJ Tesio. 2. On 11/23/2019, excision and debridement of right lower quadrant abdominal wound, subcutaneous 6 x 4 cm. Admitting Diagnoses: 1. Abdominal wall abscess. 2. Diabetes mellitus type 2, uncontrolled, not taking any medications. 3. Morbid obesity. 4. Essential hypertension, not well controlled. Discharge Diagnoses: 1. Abdominal wall abscess secondary to methicillin-resistant Staphylococcus aureus, streptococcus, and Enterococcus on Levaquin, status post I and D. 2. Acute kidney injury secondary to NSAID use, uncontrolled diabetes, uncontrolled hypertension, and vancomycin induced, requiring hemodialysis. 3. Diabetes mellitus type 2 insulin requiring with hyperglycemia, not well controlled. Hemoglobin A1c 12.4%. 4. Morbid obesity, BMI 44.9. 5. Acute cystitis without hematuria. 6. Essential hypertension, not well controlled. Hospital Course: Patient is a 44-year-old female, noncompliant, with history of morbid obesity, hypertension and diabetes, comes in with abscess on the abdominal wall on the right side on the right lower quadrant with worsening pustular drainage. Patient also has been taking significant amount of Advil [id number] for her pain. Patient was found to have abscess as mentioned above. This was debrided by Dr. Reynolds with General Surgery. The patient's white blood cell count improved and essentially normalized. She did have some electrolyte abnormalities. She did develop acute kidney injury likely related to her acute NSAID use with Advil along with uncontrolled diabetes and hypertension. She did receive vancomycin as well. Her antibiotics were adjusted given her wound cultures and she was switched to Levaquin. Her wound cultures grew out MRSA, Streptococcus, and Enterococcus. Blood cultures were negative. Urine culture also negative x2. She was seen by Nephrology. She was initiated on dialysis. Her kidney function improved, currently at 3.87. Patient was seen by Dr. Guzman with Infectious Disease, recommended to have 10- 14 days of antibiotics and to be switched to oral on discharge as she was not bacteremic. Patient responded well. She was receiving local wound care for her abscess as well. Efforts were made to initiate dialysis and get a chair time with [facility] hemodialysis program, however, due to the patient's and 's income being over certain limit, she did not qualify. The patient was informed that she is not qualified for gadiel dialysis. She will need to follow up closely with securities research analyst, Dr. Shaw, in the next 48-72 hours to have repeat labs and have dialysis repeated as needed, eventually the aim is to wean her off dialysis as her kidney function improves. She will need to follow up with wound healing clinic with Dr. Reynolds in 1 week for wound check. Follow up with Infectious Disease, Dr. Guzman, in 2 weeks. Return to ER for worsening condition. Diet: Diabetic, renal diet. Activity: As tolerated. Medications: As per medication reconciliation list. Finish off course of Levaquin for another 4 days. Patient was counseled extensively regarding her noncompliance with medications. She needs to be on insulin. She will need to have her blood glucose levels checked and have her PCP adjust her insulin dose. She will be on Coreg and Norvasc for her blood pressure and topical Bactroban for her wound of the abdomen. For physical exam findings, please see progress note dictated on the day of discharge. Total time spent discharging patient was 45 minutes. NOA Voice ID: [id number] Report ID: [id number] MAKI
== END 2019-12-02 18:36 | disposition home or self-care (01) | DRG 570 ==
LOC: ER 01:07 → ERHOLD 04:14 → 2ND 05:33
PROVIDERS: ADMIT Internal Medicine; ATTEND Family Medicine
PROC: 0JB80ZZ Excision of Abdomen Subcutaneous Tissue and Fascia, Open Approach (ICD-10-PCS; principal; 2019-11-23 11:00)
PROC: 05HM33Z Insertion of Infusion Device into Right Internal Jugular Vein, Percutaneous Approach (ICD-10-PCS; 2019-11-28)
PROC: 5A1D70Z Performance of Urinary Filtration, Intermittent, Less than 6 Hours Per Day (ICD-10-PCS; 2019-11-28)
PROC: 5A1D70Z Performance of Urinary Filtration, Intermittent, Less than 6 Hours Per Day (ICD-10-PCS; 2019-11-30)
PROC: 5A1D70Z Performance of Urinary Filtration, Intermittent, Less than 6 Hours Per Day (ICD-10-PCS; 2019-12-02)
DX: L02.211 Cutaneous abscess of abdominal wall (principal); N17.0 Acute kidney failure with tubular necrosis; N30.01 Acute cystitis with hematuria; Z68.41 Body mass index [BMI] 40.0-44.9, adult; L03.311 Cellulitis of abdominal wall; L02.231 Carbuncle of abdominal wall; B95.62 Methicillin resistant Staphylococcus aureus infection as the cause of diseases classified elsewhere; E66.01 Morbid (severe) obesity due to excess calories; E11.65 Type 2 diabetes mellitus with hyperglycemia; I12.9 Hypertensive chronic kidney disease with stage 1 through stage 4 chronic kidney disease, or unspecified chronic kidney disease; E11.22 Type 2 diabetes mellitus with diabetic chronic kidney disease; N18.9 Chronic kidney disease, unspecified
CPT/HCPCS: 36415; 70490; 71045; 74176; 76000; 76377; 76770; 80048; 80053; 80069; 80076; 80202; 81003; 81015; 81025; 82550; 82570; 82947; 83036; 83520; 83605; 84145; 84156; 84300; 84439; 84443; 84550; 84703; 85025; 85652; 86021; 86038; 86160; 86225; 86317; 86430; 86704; 86706; 86850; 86900; 86901; 87040; 87070; 87075; 87077; 87086; 87088; 87186; 87205; 87340; 87389; 87522; 88304; 90935; 93005; 96365; 96367; 96375; 99285; C1752; J0360; J0690; J0692; J1644; J1650; J1815; J2270; J2405; J2543; J2704; J3010; J3590; J7030; J7040